=== PATIENT | male | born 1975 | race African-American/Black ===

== ENCOUNTER 2018-12-14 15:17 | Emergency (ER) | payer MEDICARE ==
[~2018-12-14] VITALS: Ht 182.9 cm; Wt 108.9 kg
[2018-12-14 15:20] VITALS: BP 135/80
[2018-12-14] MEDS ORDERED: HYDR-3164 PO (16:23)
[2018-12-14] MEDS ORDERED: ORPH100T PO (16:23)
--- NOTE | 2018-12-14 16:23 | PHYS DOC ---
Past Medical History Past Medical History: No Pertinent History Past Surgical History: Cholecystectomy Alcohol Use: Occasionally Drug Use: None Adult General Chief Complaint Chief Complaint: BACK PAIN OR INJURY [facility] HPI Patient is a 43 year old male who presents with chronic back pain. Patient states about 3 days ago he began having mid thoracic pain and her shoulder blade area. He rates his pain a 10 out of 10. Patient states this feels like his chronic back pain. Patient states it's an aching gnawing feeling. Patient states he has not taken any medication for this pain today. Review of Systems Review of Systems Constitutional: Denies fever or chills [] Eyes: Denies change in visual acuity, redness, or eye pain [] HENT: Denies nasal congestion or sore throat [] Respiratory: Denies cough or shortness of breath [] Cardiovascular: No additional information not addressed in HPI [] GI: Denies abdominal pain, nausea, vomiting, bloody stools or diarrhea [] : Denies dysuria or hematuria [] Musculoskeletal: thoracic back pain or joint pain [] Integument: Denies rash or skin lesions [] Neurologic: Denies headache, focal weakness or sensory changes [] Endocrine: Denies polyuria or polydipsia [] All other systems were reviewed and found to be within normal limits, except as documented in this note. Allergies Allergies Allergies Coded Allergies Type Severity Reaction Last Updated Verified No Known Drug Allergies 10/15/14 No Physical Exam Physical Exam Constitutional: Well developed, well nourished, no acute distress, non-toxic appearance. [] HENT: Normocephalic, atraumatic, bilateral external ears normal, oropharynx moist, no oral exudates, nose normal. [] Eyes: PERRLA, EOMI, conjunctiva normal, no discharge. [] Neck: Normal range of motion, no tenderness, supple, no stridor. [] Cardiovascular:Heart rate regular rhythm, no murmur [] Lungs & Thorax: Bilateral breath sounds clear to auscultation [] Abdomen: Bowel sounds normal, soft, no tenderness, no masses, no pulsatile masses. [] Skin: Warm, dry, no erythema, no rash. [] Back: mid thoracic tenderness, no CVA tenderness. [] Extremities: No tenderness, no cyanosis, no clubbing, ROM intact, no edema. [] Neurologic: Alert and oriented X 3, normal motor function, normal sensory function, no focal deficits noted. [] Psychologic: Affect normal, judgement normal, mood normal. [] Current Patient Data Vital Signs Vital Signs Date Time Temp Pulse Resp B/P (MAP) Pulse Ox O2 Delivery O2 Flow Rate FiO2 12/14/18 15:20 98.4 83 18 135/80 (98) 97 Room Air 98.4 EKG EKG [] Radiology/Procedures Radiology/Procedures [] Course & Med Decision Making Course & Med Decision Making Patient is a 43 year old male who presents with chronic back pain. Patient states about 3 days ago he began having mid thoracic pain and her shoulder blade area. He rates his pain a 10 out of 10. Patient states this feels like his chronic back pain. Patient states it's an aching gnawing feeling. Patient states he has not taken any medication for this pain today. There is pain with palpation to the area. Patient states the pain hurts worse with movement. Alert and oriented. Skin pink warm and dry. Mucous members are moist. Vital signs are within normal limits. Patient denies dizziness, chest pain, shortness of air, nausea, vomiting, diaphoresis, fever, dysuria. Patient came in by EMS and was ambulatory with a steady gait. Patient states he does not have a primary care provider. Patient is given physician resources for follow-up care for his chronic back pain. Dragon Disclaimer Dragon Disclaimer This electronic medical record was generated, in whole or in part, using a voice recognition dictation system. Departure Departure Impression: Primary Impression: Chronic back pain Disposition: 01 HOME, SELF-CARE Condition: STABLE Referrals: NO PCP (PCP) Patient Instructions: Back Pain, Adult, Chronic Back Pain Additional Instructions: Follow up with a doctor for your chronic back pain. Take medications as prescribed. Scripts Orphenadrine Citrate (ORPHENADRINE CITRATE) 100 Mg Tablet.er 1 TAB PO BID, #8 TAB Prov: SHINE WILKINS [employer] ARCHITECT 12/14/18 Hydrocodone/Apap 5-325 (NORCO 5-325 TABLET) 1 Each Tablet 1 TAB PO PRN Q6HRS PRN for PAIN, #6 TAB 0 Refills Prov: SHINE WILKINS [employer]CHIT[employer] 12/14/18 Problem Qualifiers Primary Impression: Chronic back pain Back pain location: thoracic back pain Back pain laterality: midline Qualified Codes: M54.6 - Pain in thoracic spine; G89.29 - Other chronic pain SHINE WILKINS APRN Dec 14, 2018 16:23
== END 2018-12-14 16:30 | disposition home or self-care (01) ==
LOC: ER 15:17
DX: G89.29 Other chronic pain (principal); M54.6 Pain in thoracic spine; M25.519 Pain in unspecified shoulder
CPT/HCPCS: 99283

== ENCOUNTER 2020-06-03 19:53 | Inpatient (IN) | payer MEDICARE, MEDICAID ==
[~2020-06-03] VITALS: Ht 185.4 cm; Wt 104.9 kg
[~2020-06-03 19:53] MED LIST: HYDR-3164 PO; ORPH100T PO
[2020-06-03] MEDS ORDERED: IV NORMAL SALINE 1000ML BAG 1,000 ML IV SCH (20:02)
--- NOTE | 2020-06-03 20:08 | PHYS DOC ---
Past Medical History Past Medical History: No Pertinent History Past Surgical History: Cholecystectomy Smoking Status: Current Every Day Smoker Alcohol Use: Occasionally Drug Use: None General Adult EDM: Chief Complaint: ABDOMINAL PAIN HPI: HPI: Patient is a 44 year old male who presents with patient was picked up in a parking lot by EMS. He complains of generalized abdominal pain since 9:00 this morning. He states he has not taken any medications. He rates his pain a 10 out of 10 and states it is a stabbing pain. Patient is guarding his abdomen. States he has had some diarrhea today. Patient denies nausea, vomiting, fever, cough, dizziness, headache, numbness or tingling, vision changes. EMS also states the patient has bedbugs. Patient with history of a cholecystectomy and smoking. Review of Systems: Review of Systems: Constitutional: Denies fever or chills. [] Eyes: Denies change in visual acuity. [] HENT: Denies nasal congestion or sore throat. [] Respiratory: Denies cough or shortness of breath. [] Cardiovascular: Denies chest pain or edema. [] GI: Generalized abdominal pain, denies nausea, vomiting, bloody stools. + diarrhea. [] : Denies dysuria. [] Musculoskeletal: Denies back pain or joint pain. [] Integument: Denies rash. [] Neurologic: Denies headache, focal weakness or sensory changes. [] Endocrine: Denies polyuria or polydipsia. [] Lymphatic: Denies swollen glands. [] Psychiatric: Denies depression or anxiety. [] Heart Score: Risk Factors: Risk Factors: DM, Current or recent (<one month) smoker, HTN, HLP, family history of CAD, obesity. Risk Scores: Score 0 - 3: 2.5% MACE over next 6 weeks - Discharge Home Score 4 - 6: 20.3% MACE over next 6 weeks - Admit for Clinical Observation Score 7 - 10: 72.7% MACE over next 6 weeks - Early Invasive Strategies Allergies: Allergies: Allergies Coded Allergies Type Severity Reaction Last Updated Verified No Known Drug Allergies 10/15/14 No Physical Exam: PE: Constitutional: Well developed, well nourished, no acute distress, non-toxic appearance. [] HENT: Normocephalic, atraumatic, bilateral external ears normal, oropharynx moist, no oral exudates, nose normal. [] Eyes: PERRLA, EOMI, conjunctiva normal, no discharge. [] Neck: Normal range of motion, no tenderness, supple, no stridor. [] Cardiovascular:Heart rate regular rhythm, no murmur [] Lungs & Thorax: Bilateral breath sounds clear to auscultation [] Abdomen: Bowel sounds normal, tight and distended, generalized tenderness, no m asses, no pulsatile masses. [] Skin: Warm, dry, no erythema, no rash. Small wounds all over body from picking. [] Back: No tenderness, no CVA tenderness. [] Extremities: No tenderness, no cyanosis, no clubbing, ROM intact, no edema. [] Neurologic: Alert and oriented X 3, normal motor function, normal sensory function, no focal deficits noted. [] Psychologic: Affect normal, judgement normal, mood normal. [] EKG: EKG: [] Radiology/Procedures: Radiology/Procedures: [] Impression: [facility] [address] [place] [address] IMAGING REPORT Signed PATIENT: REINALDO OLMOS DACCOUNT: [id number] : 1975 LOCATION: ER AGE: 44 SEX: M EXAM STATUS: REG ER ORD. PHYSICIAN: SHINE WILKINS APRN REASON: abd pain PROCEDURE: CT ABD PELV W/ IV CONTRST ONLY Exam: CT of abdomen and pelvis with contrast INDICATION: Abdominal pain TECHNIQUE: Sequential axial images through the abdomen and pelvis obtained following the administration of 75 mL of Isovue-370 IV contrast. Sagittal and coronal reformatted images were reconstructed from the axial data and reviewed. Comparisons: None FINDINGS: Heart size is normal. No pericardial effusion. Strandy opacities at the dependent portion lungs likely representing atelectasis. Liver, spleen, pancreas, and adrenals are unremarkable. Gallbladder is absent. Kidneys demonstrate symmetric enhancement. No perinephric inflammation or hydronephrosis. No renal or ureteral calculi are identified. Bladder is decompressed not well evaluated. Prostate is not enlarged. The small bowel is diffusely mildly dilated. Colon is nondilated with fluid seen in the cecum and decompressed distally. No free abdominal air or fluid. Abdominal aorta has a normal course and caliber. Abdominal vasculature is patent. No enlarged abdominal lymph nodes are identified. No suspicious osseous lesions or acute fractures. IMPRESSION: Small bowel is mildly dilated diffusely. The more distal small bowel has a more normal caliber. Distinct transition point is not identified. Findings likely relate to either a developing more partial small bowel obstruction. Continued radiographic follow-up is recommended. Exposure: One or more of the following in the visualized dose reduction techniques were utilized for this examination: 1. Automated exposure control 2. Adjustment of the MA and/or KV according to patient size 3. Use of iterative of reconstructive technique Electronically signed by: Roz Amaya MD (06/03/2020 9:16 PM) [id number] DICTATED and SIGNED BY: ROZ AMAYA MD DATE: 06/03/202115 Course & Med Decision Making: Course & Med Decision Making Pertinent Labs and Imaging studies reviewed. (See chart for details) Alert and oriented x4. Speaks in full complete sentences. Patient is guarding his abdomen. Abdomen is look distended and slightly tight. Ambulatory with a slow, steady gait. Patient is positive for PCP and cocaine and marijuana. Blood work is unremarkable. CT findings are as below: IMPRESSION: Small bowel is mildly dilated diffusely. The more distal small bowel has a more normal caliber. Distinct transition point is not identified. Findings likely relate to either a developing more partial small bowel obstruction. Continued radiographic follow-up is recommended. [] Patient admitted to hospitalist. I will consult GI and surgery. Shlomo Disclaimer: Shlomo Disclaimer: This electronic medical record was generated, in whole or in part, using a voice recognition dictation system. Departure Departure Impression: Primary Impression: Small bowel obstruction Disposition: ADMITTED INPATIENT Admitting Physician: HIMMukesh Condition: STABLE Referrals: BIBIANA GALEANO MD (PCP) Justicifation of Admission Dx: Justifications for Admission: Justification of Admission Dx: Yes Comments: Partial Small Bowel Obstruction SHINE WILKINS SIGNAL WORKER Jun 03, 2020 20:08
[2020-06-03 20:14] LABS: BASO % 0 % (0-3); EOS % 0 % (0-3); HEMATOCRIT 45.1 % (39.0-53.0); HEMOGLOBIN 15.3 g/dL (13.0-17.5); LYMPH # 0.9 x10^3/uL (1.0-4.8); LYMPH % 13 % (24-48); MEAN CORPUSCULAR HEMOGLOBIN 31 pg (25-35); MEAN CORPUSCULAR HGB CONC 34 g/dL (31-37); MEAN CORPUSCULAR VOLUME 92 fL (79-100); MONO # 0.6 x10^3/uL (0.0-1.1); MONO % 8 % (0-9); NEUT # 5.6 x10^3/uL (1.8-7.7); NEUT % 79 % (31-73); PLATELET COUNT 253 x10^3/uL (140-400); RED BLOOD COUNT 4.93 x10^6/uL (4.30-5.70); RED CELL DISTRIBUTION WIDTH 13.1 % (11.5-14.5); WHITE BLOOD COUNT 7.1 x10^3/uL (4.0-11.0)
[2020-06-03] MEDS ORDERED: fentaNYL PF VIAL 100 MCG/2 ML VIAL IVP ONE (20:15)
[2020-06-03 20:20] LABS: PROTHROMBIN TIME PATIENT 12.9 SEC (11.7-14.0)
[2020-06-03 20:28] LABS: CALCIUM 9.3 mg/dL (8.5-10.1); CREATININE 1.1 mg/dL (0.7-1.3); GFR 88.8; POTASSIUM 3.6 mmol/L (3.5-5.1)
[2020-06-03 20:30] LABS: COLOR,URINE RED
[2020-06-03 20:32] LABS: ALBUMIN 4.1 g/dL (3.4-5.0); TOTAL BILIRUBIN 1.1 mg/dL (0.2-1.0); TOTAL PROTEIN 8.3 g/dL (6.4-8.2)
[2020-06-03 20:37] LABS: AMPHETAMINE/METHAMPHETAMINE NEG (NEG); BARBITURATES NEG (NEG); BENZODIAZEPINES NEG (NEG); CANNABINOIDS POS (NEG); COCAINE POS (NEG); METHADONE NEG (NEG); OPIATES NEG (NEG); PHENCYCLIDINE POS (NEG)
[2020-06-03 20:41] LABS: RBC,URINE TNTC /HPF (0-2)
[2020-06-03 20:42] LABS: BACTERIA,URINE 0 /HPF (0-FEW); SQUAMOUS EPITHELIAL CELL,UR FEW /LPF
[2020-06-03 20:45] LABS: CLARITY,URINE CLOUDY; WBC,URINE OCC /HPF (0-4)
[2020-06-03] MEDS ORDERED: IOHEXOL 300 MG/ML 100ML VIAL. IV ONE (21:00)
[2020-06-03] MEDS ORDERED: CONTRAST GIVEN. MC PRN (21:00)
--- NOTE | 2020-06-03 21:18 | RAD ---
Exam: CT of abdomen and pelvis with contrast INDICATION: Abdominal pain TECHNIQUE: Sequential axial images through the abdomen and pelvis obtained following the administration of 75 mL of Isovue-370 IV contrast. Sagittal and coronal reformatted images were reconstructed from the axial data and reviewed. Comparisons: None FINDINGS: Heart size is normal. No pericardial effusion. Strandy opacities at the dependent portion lungs likely representing atelectasis. Liver, spleen, pancreas, and adrenals are unremarkable. Gallbladder is absent. Kidneys demonstrate symmetric enhancement. No perinephric inflammation or hydronephrosis. No renal or ureteral calculi are identified. Bladder is decompressed not well evaluated. Prostate is not enlarged. The small bowel is diffusely mildly dilated. Colon is nondilated with fluid seen in the cecum and decompressed distally. No free abdominal air or fluid. Abdominal aorta has a normal course and caliber. Abdominal vasculature is patent. No enlarged abdominal lymph nodes are identified. No suspicious osseous lesions or acute fractures. IMPRESSION: Small bowel is mildly dilated diffusely. The more distal small bowel has a more normal caliber. Distinct transition point is not identified. Findings likely relate to either a developing more partial small bowel obstruction. Continued radiographic follow-up is recommended. Exposure: One or more of the following in the visualized dose reduction techniques were utilized for this examination: 1. Automated exposure control 2. Adjustment of the MA and/or KV according to patient size 3. Use of iterative of reconstructive technique Electronically signed by: Roz Lynch MD (06/03/2020 9:16 PM) [id number]
[2020-06-03] MEDS ORDERED: ONDANSETRON PF 4 MG/2 ML VIAL. IV PRN (21:45)
--- NOTE | 2020-06-03 22:50 | NUR ---
Pt. arrived to unit from ED by wheelchair at 2250. Pt. is alert and oriented, on room air and slightly drowsy. Pt. complains of pain 07/09. Admission questions and assessment done at this time. Call light within reach and bed in lowest position. Will continue to monitor.
[2020-06-04] VITALS: BP 120/54
[2020-06-04] MEDS: IV NORMAL SALINE 1000ML BAG 1,000 ML IV SCH ×3 (00:05→17:23)
[2020-06-04] MEDS: MORPHINE SULFATE 2 MG/ML VIAL. IV PRN ×2 (00:23→10:12)
--- NOTE | 2020-06-04 05:22 | NUR ---
pt. states he smokes up to a pack a day sometimes. Addendum: 06/04/20 at 0528 by DIAZ LUNDY RN Amended: Links added.
[2020-06-04 07:00] VITALS: BP 113/62
--- NOTE | 2020-06-04 09:57 | NUR ---
SW following. Discussed with RN, pt from home, room air, NPO. Pt tox screen positive for PCP, cocaine, marijuana - PAT consulted. RN reported pt's sister helps take care of him - possibility of bed bugs. STEPHANY will continue to follow for discharge planning. Addendum: 06/04/20 at 1245 by LORNE SULLIVAN SW Praveen SHAH) met with pt, pt denying SI, HI, MH hx, only uses drugs "once in a blue sifuentes." Pt provided with AA, NA, and RADAC information. STEPHANY will continue to follow.
--- NOTE | 2020-06-04 10:10 | PDOC2 ---
GI CONSULT Date of Service: DATE: 06/04/20 TIME: 10:10 Reason For Consult: partial SBO HPI: HPI: 44 y/o male brought to ER by EMS, says they picked him up at the store. Poor historian, speech difficult to understand. Abdominal pain and diarrhea started yesterday. Staff notes bedbugs. Tox screen +cocaine +marijuana. Blood on UA. CT report notes possible developing SBO. Had pancreatitis and elevated LFTs in 1996. Had ERCP w/ Dr. Cayr prior to cholecystectomy. ERCP report notes normal ampulla, normal PD, dilated CBD w/o filling defects and normal intrahepatic ducts, patent cystic duct w/ large stones present in gallbladder, and empiric papillotomy. Markedly suppressed breathing noted during procedure. PMH: PMH: cholecystectomy chart also mentions back pain and constipation FH: Family History: No pertinent hx Social History: Drugs: Cocaine, Marijuana ROS: Difficult to obtain, see HPI. Vitals: Vitals: Vital Signs Date Time Temp Pulse Resp B/P (MAP) Pulse Ox O2 Delivery O2 Flow Rate FiO2 06/04/20 07:00 98.2 86 18 113/62 (79) 93 Room Air 98.2 Labs: Labs: Laboratory Tests Test 06/03/20 20:05 06/03/20 20:21 White Blood Count 7.1 x10^3/uL (4.0-11.0) Red Blood Count 4.93 x10^6/uL (4.30-5.70) Hemoglobin 15.3 g/dL (13.0-17.5) Hematocrit 45.1 % (39.0-53.0) Mean Corpuscular Volume 92 fL (79-100) Mean Corpuscular Hemoglobin 31 pg (25-35) Mean Corpuscular Hemoglobin Concent 34 g/dL (31-37) Red Cell Distribution Width 13.1 % (11.5-14.5) Platelet Count 253 x10^3/uL (140-400) Neutrophils (%) (Auto) 79 % (31-73) Lymphocytes (%) (Auto) 13 % (24-48) Monocytes (%) (Auto) 8 % (0-9) Eosinophils (%) (Auto) 0 % (0-3) Basophils (%) (Auto) 0 % (0-3) Neutrophils # (Auto) 5.6 x10^3/uL (1.8-7.7) Lymphocytes # (Auto) 0.9 x10^3/uL (1.0-4.8) Monocytes # (Auto) 0.6 x10^3/uL (0.0-1.1) Eosinophils # (Auto) 0.0 x10^3/uL (0.0-0.7) Basophils # (Auto) 0.0 x10^3/uL (0.0-0.2) Prothrombin Time 12.9 SEC (11.7-14.0) Prothromb Time International Ratio 1.0 (0.8-1.1) Sodium Level 140 mmol/L (136-145) Potassium Level 3.6 mmol/L (3.5-5.1) Chloride Level 102 mmol/L (98-107) Carbon Dioxide Level 32 mmol/L (21-32) Anion Gap 6 (6-14) Blood Urea Nitrogen 11 mg/dL (8-26) Creatinine 1.1 mg/dL (0.7-1.3) Estimated GFR (Cockcroft-Gault) 88.8 BUN/Creatinine Ratio 10 (6-20) Glucose Level 115 mg/dL (70-99) Calcium Level 9.3 mg/dL (8.5-10.1) Total Bilirubin 1.1 mg/dL (0.2-1.0) Aspartate Amino Transf (AST/SGOT) 29 U/L (15-37) Alanine Aminotransferase (ALT/SGPT) 44 U/L (16-63) Alkaline Phosphatase 90 U/L (46-116) Total Protein 8.3 g/dL (6.4-8.2) Albumin 4.1 g/dL (3.4-5.0) Albumin/Globulin Ratio 1.0 (1.0-1.7) Lipase 106 U/L (73-393) Urine Collection Type Unknown Urine Color Red Urine Clarity Cloudy Urine pH (<5.0-8.0) Urine Specific Maribel (1.000-1.030) Urine Protein mg/dL (NEG-TRACE) Urine Glucose (UA) mg/dL (NEG) Urine Ketones (Stick) mg/dL (NEG) Urine Blood (NEG) Urine Nitrite (NEG) Urine Bilirubin (NEG) Urine Urobilinogen Dipstick mg/dL (0.2 mg/dL) Urine Leukocyte Esterase (NEG) Urine RBC Tntc /HPF (0-2) Urine WBC Occ /HPF (0-4) Urine Squamous Epithelial Cells Few /LPF Urine Bacteria 0 /HPF (0-FEW) Urine Mucus Mod /LPF Urine Opiates Screen Neg (NEG) Urine Methadone Screen Neg (NEG) Urine Barbiturates Neg (NEG) Urine Phencyclidine Screen Pos (NEG) Urine Amphetamine/Methamphetamine Neg (NEG) Urine Benzodiazepines Screen Neg (NEG) Urine Cocaine Screen Pos (NEG) Urine Cannabinoids Screen Pos (NEG) Urine Ethyl Alcohol Neg (NEG) Allergies: Coded Allergies: No Known Drug Allergies (Unverified , 10/15/14) Medications: Current Medications Medications (Trade) Dose Ordered Sig/Lia Route PRN Reason Start Time Stop Time Status Last Admin Dose Admin Sodium Chloride 1,000 ml @ 1,000 mls/hr Q1H IV 06/03/20 20:02 06/03/20 21:01 DC 06/03/20 20:14 Fentanyl Citrate (Fentanyl 2ml Vial) 50 mcg 1X ONCE IVP 06/03/20 20:15 06/03/20 20:16 DC 06/03/20 20:13 Iohexol (Omnipaque 300 Mg/ml) 75 ml 1X ONCE IV 06/03/20 21:00 06/03/20 21:01 DC 06/03/20 21:02 Sodium Chloride 1,000 ml @ 100 mls/hr Q10H IV 06/03/20 21:45 06/04/20 21:44 06/04/20 08:12 Morphine Sulfate (Morphine Sulfate) 2 mg PRN Q2HR PRN IV PAIN 06/04/20 00:15 06/04/20 00:23 Imaging: Imaging: CT A/P IMPRESSION: Small bowel is mildly dilated diffusely. The more distal small bowel has moo normal caliber. Distinct transition point is not identified. Findings likely relate to either a developing more partial small bowel obstruction.Continued radiographic follow-up is recommended. PE: GEN: NAD HEENT: Atraumatic, PERRL LUNGS: CTAB HEART: RRR ABD: epigastric discomfort, few very quiet BS RLQ EXTREMITY: No edema SKIN: No rashes, no jaundice NEURO/PSYCH: A & O 3, speech difficult to understand A/P: A/P: Abd pain, diarrhea Abnormal CT Substance abuse, bedbugs S/p cholecystectomy and ERCP (1996) -- Keep NPO for now, check KUB and stool studies, consider surgery opinion if indicated. EDER LESLIE Jun 04, 2020 10:10
--- NOTE | 2020-06-04 10:14 | PDOC1 ---
History and Physical Date of Admission Date of Admission DATE: 06/04/20 TIME: 10:14 Identification/Chief Complaint Chief Complaint seen in ER WITH ABD PAIN, sbo 44 year old male who presents with patient was picked up in a parking lot by EMS. He complains of generalized abdominal pain since 9:00 this morning. He rates his pain a 10 out of 10 and states it is a stabbing pain. Patient is guarding his abdomen. STILL C/O TENDERNESS, ACUTE ABD SERIES PENDING, GI ANS SURGERY CONSULTED Past Medical History Past Medical History Past Medical History Past Medical History: No Pertinent History Past Surgical History: Cholecystectomy Smoking Status: Current Every Day Smoker Alcohol Use: Occasionally Drug Use: None FHX COPD Psych: Anxiety, Addictions, Depression Rheumatologic: No pertinent hx Family History Family History: Alcohol Abuse, Hypertension Social History Smoke: <1 pack per day ALCOHOL: occassional Drugs: Cocaine, Marijuana Current Problem List Problem List Problems Medical Problems: (1) Small bowel obstruction Status: Acute Current Medications Current Medications Current Medications Sodium Chloride 1,000 ml @ 1,000 mls/hr Q1H IV Last administered on 06/03/20at 20:14; Start 06/03/20 at 20:02; Stop 06/03/20 at 21:01; Status DC Fentanyl Citrate (Fentanyl 2ml Vial) 50 mcg 1X ONCE IVP Last administered on 06/03/20at 20:13; Start 06/03/20 at 20:15; Stop 06/03/20 at 20:16; Status DC Iohexol (Omnipaque 300 Mg/ml) 75 ml 1X ONCE IV Last administered on 06/03/20at 21:02; Start 06/03/20 at 21:00; Stop 06/03/20 at 21:01; Status DC Info (CONTRAST GIVEN -- Rx MONITORING) 1 each PRN DAILY PRN MC SEE COMMENTS; Start 06/03/20 at 21:00; Stop 06/05/20 at 20:59 Ondansetron HCl (Zofran) 4 mg PRN Q8HRS PRN IV NAUSEA/VOMITING; Start 06/03/20 at 21:45; Stop 06/04/20 at 21:44 Sodium Chloride 1,000 ml @ 100 mls/hr Q10H IV Last administered on 06/04/20at 08:12; Start 06/03/20 at 21:45; Stop 06/04/20 at 21:44 Morphine Sulfate (Morphine Sulfate) 2 mg PRN Q2HR PRN IV PAIN Last administered on 06/04/20at 10:12; Start 06/04/20 at 00:15 Active Scripts Active Reported No Known Medications Prior To Admisstion (Info) Each 1 Each MC 1X Allergies Allergies: Coded Allergies: No Known Drug Allergies (Unverified , 10/15/14) ROS Review of System Review of Systems: Review of Systems: Constitutional: Denies fever or chills. [] Eyes: Denies change in visual acuity. [] HENT: Denies nasal congestion or sore throat. [] Respiratory: Denies cough or shortness of breath. [] Cardiovascular: Denies chest pain or edema. [] GI: Generalized abdominal pain, denies nausea, vomiting, bloody stools. + diarrhea. [] : Denies dysuria. [] Musculoskeletal: Denies back pain or joint pain. [] Integument: Denies rash. [] Neurologic: Denies headache, focal weakness or sensory changes. [] Endocrine: Denies polyuria or polydipsia. [] Lymphatic: Denies swollen glands. [] Psychiatric: Denies SI 14 PT ROS OTHERWISE NEG General: YES: Appetite PSYCHOLOGICAL ROS: YES: Anxiety, Depression ALLERGY AND IMMUNOLOGY: No: Hives, Insect Bite Sensitivity, Itchy/Watery Eyes, Nasal Congestion, Post Nasal Drip, Seasonal Allergies, Other Hematological and Lymphatic: No: Bleeding Problems, Blood Clots, Blood Transfusions, Brusing, Night Sweats, Pallor, Swollen Lymph Nodes, Other Respiratory: No: Cough, Hemoptysis, Orthopnea, Pleuritic Pain, Shortness of breath, SOB with excertion, Sputum Changes, Stridor, Tachypnea, Wheezing, Other Cardiovascular: No Chest Pain, No Palpitations, No Orthopnea, No Paroxysmal No c. Dyspnea, No Edema, No Lt Headedness, No Other Gastrointestinal: Yes Abdominal Pain Musculoskeletal: No Gait Disturbance, No Joint Pain, No Joint Stiffness, No Joint Swelling, No Muscle Pain, No Muscular Weakness, No Pain In:, No Swelling In:, No Other Neurological: Yes Weakness Physical Exam Physical Exam Physical Exam: PE: Constitutional: Well developed, well nourished, MILD acute distress, non-toxic appearance. [] HENT: Normocephalic, atraumatic, bilateral external ears normal, oropharynx moist, no oral exudates, nose normal. [] Eyes: PERRLA, EOMI, conjunctiva normal, no discharge. [] Neck: Normal range of motion, no tenderness, supple, no stridor. [] Cardiovascular:Heart rate regular rhythm, no murmur [] Lungs & Thorax: Bilateral breath sounds clear to auscultation [] Abdomen: Bowel sounds normal, tight and distended, generalized tenderness, no masses, no pulsatile masses. [] Skin: Warm, dry, no erythema, no rash. Small wounds all over body from picking. [] Back: No tenderness, no CVA tenderness. [] Extremities: No tenderness, no cyanosis, no clubbing, ROM intact, no edema. [] Neurologic: Alert and oriented X 3, normal motor function, normal sensory function, no focal deficits noted. [] Psychologic: Affect normal, judgment POOR mood normal. [] General: Alert, Oriented X3, Cooperative, mild distress HEENT: Atraumatic, EOMI, Mucous membr. moist/pink Lungs: Clear to auscultation, Normal air movement Heart: RRR, no thrills, no gallops, no murmurs Breasts: Not examined Abdomen: Other (TENDER DIFFUSELY ) Rectal Exam: not examined Extremities: No cyanosis, No edema Neuro: Normal speech, Cranial nerves 3-12 NL Vitals Vitals Vital Signs Date Time Temp Pulse Resp B/P (MAP) Pulse Ox O2 Delivery O2 Flow Rate FiO2 06/04/20 10:12 Room Air 06/04/20 07:00 98.2 86 18 113/62 (79) 93 98.2 Labs Labs Laboratory Tests Test 06/03/20 20:05 06/03/20 20:21 White Blood Count 7.1 x10^3/uL (4.0-11.0) Red Blood Count 4.93 x10^6/uL (4.30-5.70) Hemoglobin 15.3 g/dL (13.0-17.5) Hematocrit 45.1 % (39.0-53.0) Mean Corpuscular Volume 92 fL (79-100) Mean Corpuscular Hemoglobin 31 pg (25-35) Mean Corpuscular Hemoglobin Concent 34 g/dL (31-37) Red Cell Distribution Width 13.1 % (11.5-14.5) Platelet Count 253 x10^3/uL (140-400) Neutrophils (%) (Auto) 79 % (31-73) Lymphocytes (%) (Auto) 13 % (24-48) Monocytes (%) (Auto) 8 % (0-9) Eosinophils (%) (Auto) 0 % (0-3) Basophils (%) (Auto) 0 % (0-3) Neutrophils # (Auto) 5.6 x10^3/uL (1.8-7.7) Lymphocytes # (Auto) 0.9 x10^3/uL (1.0-4.8) Monocytes # (Auto) 0.6 x10^3/uL (0.0-1.1) Eosinophils # (Auto) 0.0 x10^3/uL (0.0-0.7) Basophils # (Auto) 0.0 x10^3/uL (0.0-0.2) Prothrombin Time 12.9 SEC (11.7-14.0) Prothromb Time International Ratio 1.0 (0.8-1.1) Sodium Level 140 mmol/L (136-145) Potassium Level 3.6 mmol/L (3.5-5.1) Chloride Level 102 mmol/L (98-107) Carbon Dioxide Level 32 mmol/L (21-32) Anion Gap 6 (6-14) Blood Urea Nitrogen 11 mg/dL (8-26) Creatinine 1.1 mg/dL (0.7-1.3) Estimated GFR (Cockcroft-Gault) 88.8 BUN/Creatinine Ratio 10 (6-20) Glucose Level 115 mg/dL (70-99) Calcium Level 9.3 mg/dL (8.5-10.1) Total Bilirubin 1.1 mg/dL (0.2-1.0) Aspartate Amino Transf (AST/SGOT) 29 U/L (15-37) Alanine Aminotransferase (ALT/SGPT) 44 U/L (16-63) Alkaline Phosphatase 90 U/L (46-116) Total Protein 8.3 g/dL (6.4-8.2) Albumin 4.1 g/dL (3.4-5.0) Albumin/Globulin Ratio 1.0 (1.0-1.7) Lipase 106 U/L (73-393) Urine Collection Type Unknown Urine Color Red Urine Clarity Cloudy Urine pH (<5.0-8.0) Urine Specific [place] (1.000-1.030) Urine Protein mg/dL (NEG-TRACE) Urine Glucose (UA) mg/dL (NEG) Urine Ketones (Stick) mg/dL (NEG) Urine Blood (NEG) Urine Nitrite (NEG) Urine Bilirubin (NEG) Urine Urobilinogen Dipstick mg/dL (0.2 mg/dL) Urine Leukocyte Esterase (NEG) Urine RBC Tntc /HPF (0-2) Urine WBC Occ /HPF (0-4) Urine Squamous Epithelial Cells Few /LPF Urine Bacteria 0 /HPF (0-FEW) Urine Mucus Mod /LPF Urine Opiates Screen Neg (NEG) Urine Methadone Screen Neg (NEG) Urine Barbiturates Neg (NEG) Urine Phencyclidine Screen Pos (NEG) Urine Amphetamine/Methamphetamine Neg (NEG) Urine Benzodiazepines Screen Neg (NEG) Urine Cocaine Screen Pos (NEG) Urine Cannabinoids Screen Pos (NEG) Urine Ethyl Alcohol Neg (NEG) Laboratory Tests Test 06/03/20 20:05 06/03/20 20:21 White Blood Count 7.1 x10^3/uL (4.0-11.0) Red Blood Count 4.93 x10^6/uL (4.30-5.70) Hemoglobin 15.3 g/dL (13.0-17.5) Hematocrit 45.1 % (39.0-53.0) Mean Corpuscular Volume 92 fL (79-100) Mean Corpuscular Hemoglobin 31 pg (25-35) Mean Corpuscular Hemoglobin Concent 34 g/dL (31-37) Red Cell Distribution Width 13.1 % (11.5-14.5) Platelet Count 253 x10^3/uL (140-400) Neutrophils (%) (Auto) 79 % (31-73) Lymphocytes (%) (Auto) 13 % (24-48) Monocytes (%) (Auto) 8 % (0-9) Eosinophils (%) (Auto) 0 % (0-3) Basophils (%) (Auto) 0 % (0-3) Neutrophils # (Auto) 5.6 x10^3/uL (1.8-7.7) Lymphocytes # (Auto) 0.9 x10^3/uL (1.0-4.8) Monocytes # (Auto) 0.6 x10^3/uL (0.0-1.1) Eosinophils # (Auto) 0.0 x10^3/uL (0.0-0.7) Basophils # (Auto) 0.0 x10^3/uL (0.0-0.2) Prothrombin Time 12.9 SEC (11.7-14.0) Prothromb Time International Ratio 1.0 (0.8-1.1) Sodium Level 140 mmol/L (136-145) Potassium Level 3.6 mmol/L (3.5-5.1) Chloride Level 102 mmol/L (98-107) Carbon Dioxide Level 32 mmol/L (21-32) Anion Gap 6 (6-14) Blood Urea Nitrogen 11 mg/dL (8-26) Creatinine 1.1 mg/dL (0.7-1.3) Estimated GFR (Cockcroft-Gault) 88.8 BUN/Creatinine Ratio 10 (6-20) Glucose Level 115 mg/dL (70-99) Calcium Level 9.3 mg/dL (8.5-10.1) Total Bilirubin 1.1 mg/dL (0.2-1.0) Aspartate Amino Transf (AST/SGOT) 29 U/L (15-37) Alanine Aminotransferase (ALT/SGPT) 44 U/L (16-63) Alkaline Phosphatase 90 U/L (46-116) Total Protein 8.3 g/dL (6.4-8.2) Albumin 4.1 g/dL (3.4-5.0) Albumin/Globulin Ratio 1.0 (1.0-1.7) Lipase 106 U/L (73-393) Urine Collection Type Unknown Urine Color Red Urine Clarity Cloudy Urine pH (<5.0-8.0) Urine Specific [place] (1.000-1.030) Urine Protein mg/dL (NEG-TRACE) Urine Glucose (UA) mg/dL (NEG) Urine Ketones (Stick) mg/dL (NEG) Urine Blood (NEG) Urine Nitrite (NEG) Urine Bilirubin (NEG) Urine Urobilinogen Dipstick mg/dL (0.2 mg/dL) Urine Leukocyte Esterase (NEG) Urine RBC Tntc /HPF (0-2) Urine WBC Occ /HPF (0-4) Urine Squamous Epithelial Cells Few /LPF Urine Bacteria 0 /HPF (0-FEW) Urine Mucus Mod /LPF Urine Opiates Screen Neg (NEG) Urine Methadone Screen Neg (NEG) Urine Barbiturates Neg (NEG) Urine Phencyclidine Screen Pos (NEG) Urine Amphetamine/Methamphetamine Neg (NEG) Urine Benzodiazepines Screen Neg (NEG) Urine Cocaine Screen Pos (NEG) Urine Cannabinoids Screen Pos (NEG) Urine Ethyl Alcohol Neg (NEG) Images Images PATIENT: REINALDO OLMOS DACCOUNT: [id number] : 1975 LOCATION: ER AGE: 44 SEX: M EXAM STATUS: REG ER ORD. PHYSICIAN: SHINE WILKINS APRN REASON: abd pain PROCEDURE: CT ABD PELV W/ IV CONTRST ONLY Exam: CT of abdomen and pelvis with contrast INDICATION: Abdominal pain TECHNIQUE: Sequential axial images through the abdomen and pelvis obtained following the administration of 75 mL of Isovue-370 IV contrast. Sagittal and coronal reformatted images were reconstructed from the axial data and reviewed. Comparisons: None FINDINGS: Heart size is normal. No pericardial effusion. Strandy opacities at the dependent portion lungs likely representing atelectasis. Liver, spleen, pancreas, and adrenals are unremarkable. Gallbladder is absent. Kidneys demonstrate symmetric enhancement. No perinephric inflammation or hydronephrosis. No renal or ureteral calculi are identified. Bladder is decompressed not well evaluated. Prostate is not enlarged. The small bowel is diffusely mildly dilated. Colon is nondilated with fluid seen in the cecum and decompressed distally. No free abdominal air or fluid. Abdominal aorta has a normal course and caliber. Abdominal vasculature is patent. No enlarged abdominal lymph nodes are identified. No suspicious osseous lesions or acute fractures. IMPRESSION: Small bowel is mildly dilated diffusely. The more distal small bowel has a more normal caliber. Distinct transition point is not identified. Findings likely relate to either a developing more partial small bowel obstruction. Continued radiographic follow-up is recommended. Exposure: One or more of the following in the visualized dose reduction techniques were utilized for this examination: 1. Automated exposure control 2. Adjustment of the MA and/or KV according to patient size 3. Use of iterative of reconstructive technique Electronically signed by: Roz Amaya MD (06/03/2020 9:16 PM) [id number] DICTATED and SIGNED BY: ROZ AMAYA MD DATE: 06/03/202115 VTE Prophylaxis Ordered VTE Prophylaxis Devices: Yes VTE Pharmacological Prophylaxi: No Assessment/Plan Assessment/Plan IMPRESSION: Small bowel is mildly dilated diffusely. Findings likely relate to either a developing more partial small bowel obstruction. Continued radiographic follow- up is recommended. severe polysubstance abuse plan admit consult GI Consult gen surgery npo iv fluids scd's acute abd series now 76 MIN PT EXAM, CHART REVIEW, > 50% OF TIME SPENT WITH EXAM, CHART REVIEW, PT CARE COORDINATION Justicifation of Admission Dx: Justifications for Admission: Justification of Admission Dx: Yes DOROTHY JOSE MD Jun 04, 2020 10:14
[2020-06-04 11:00] VITALS: BP 98/59
[2020-06-04] MEDS ORDERED: 0.9 % SODIUM CHLORIDE 10 ML DISP.SYRIN. IV PRN (12:00)
[2020-06-04] MEDS ORDERED: IPRATRPIUM/ALBUTEROL 0.5/2.5MG 3 ML NEBU. NEB SCH (12:00)
[2020-06-04] MEDS ORDERED: ACETAMINOPHEN 650 MG SUPP.RECT. PR PRN (12:00)
[2020-06-04] MEDS ORDERED: SODIUM PHOSPHATES 19/7GM 133 ML ENEMA. PR PRN (12:00)
[2020-06-04] MEDS ORDERED: ONDANSETRON PF 4 MG/2 ML VIAL. IV PRN (12:00)
[2020-06-04] MEDS ORDERED: IPRATRPIUM/ALBUTEROL 0.5/2.5MG 3 ML NEBU. NEB PRN (12:15)
[2020-06-04] MEDS: ENOXAPARIN 40 MG/0.4 ML SYRINGE. SQ SCH (13:05)
[2020-06-04 14:02] LABS: BASO % 0 % (0-3); EOS % 0 % (0-3); HEMATOCRIT 39.4 % (39.0-53.0); HEMOGLOBIN 13.2 g/dL (13.0-17.5); LYMPH # 0.8 x10^3/uL (1.0-4.8); LYMPH % 10 % (24-48); MEAN CORPUSCULAR HEMOGLOBIN 31 pg (25-35); MEAN CORPUSCULAR HGB CONC 33 g/dL (31-37); MEAN CORPUSCULAR VOLUME 93 fL (79-100); MONO # 0.5 x10^3/uL (0.0-1.1); MONO % 6 % (0-9); NEUT # 6.6 x10^3/uL (1.8-7.7); NEUT % 84 % (31-73); PLATELET COUNT 197 x10^3/uL (140-400); RED BLOOD COUNT 4.25 x10^6/uL (4.30-5.70); RED CELL DISTRIBUTION WIDTH 13.2 % (11.5-14.5); WHITE BLOOD COUNT 7.9 x10^3/uL (4.0-11.0)
[2020-06-04 14:16] LABS: ALBUMIN 2.9 g/dL (3.4-5.0); ALBUMIN/GLOBULIN RATIO 0.8 (1.0-1.7); CALCIUM 7.9 mg/dL (8.5-10.1); CREATININE 0.8 mg/dL (0.7-1.3); GFR 128.3; POTASSIUM 3.3 mmol/L (3.5-5.1); TOTAL BILIRUBIN 1.1 mg/dL (0.2-1.0); TOTAL PROTEIN 6.6 g/dL (6.4-8.2)
[2020-06-04 15:00] VITALS: BP 102/60
--- NOTE | 2020-06-04 15:46 | PDOC2 ---
[facility] 06/04/20 1546: CONSULT Date of Consult Date of Consult DATE: 06/04/20 TIME: 15:38 Reason for Consult Reason for Consult: SBO Referring Physician Referring Physician: Dr Sanford Identification/Chief Complaint Chief Complaint abdominal pain Source Source: Chart review, Patient History of Present Illness Reason for Visit: Admitted with abdominal pain and diarrhea x 2 yesterday. Prior to that was having normal stools. Denies any flatus or stool today. No fevers or chills Hx lap donya Past Medical History Psych: Anxiety, Addictions, Depression Rheumatologic: No pertinent hx Past Surgical History Past Surgical History: Cholecystectomy Family History Family History: Alcohol Abuse, Hypertension Social History <1 pack per day ALCOHOL: occassional Drugs: Cocaine, Marijuana Current Problem List Problem List Problems Medical Problems: (1) Small bowel obstruction Status: Acute Current Medications Current Medications Current Medications Sodium Chloride 1,000 ml @ 1,000 mls/hr Q1H IV Last administered on 06/03/20at 20:14; Start 06/03/20 at 20:02; Stop 06/03/20 at 21:01; Status DC Fentanyl Citrate (Fentanyl 2ml Vial) 50 mcg 1X ONCE IVP Last administered on 06/03/20at 20:13; Start 06/03/20 at 20:15; Stop 06/03/20 at 20:16; Status DC Iohexol (Omnipaque 300 Mg/ml) 75 ml 1X ONCE IV Last administered on 06/03/20at 21:02; Start 06/03/20 at 21:00; Stop 06/03/20 at 21:01; Status DC Info (CONTRAST GIVEN -- Rx MONITORING) 1 each PRN DAILY PRN MC SEE COMMENTS; Start 06/03/20 at 21:00; Stop 06/05/20 at 20:59 Ondansetron HCl (Zofran) 4 mg PRN Q8HRS PRN IV NAUSEA/VOMITING; Start 06/03/20 at 21:45; Stop 06/04/20 at 21:44 Sodium Chloride 1,000 ml @ 100 mls/hr Q10H IV Last administered on 06/04/20at 08:12; Start 06/03/20 at 21:45; Stop 06/04/20 at 21:44 Morphine Sulfate (Morphine Sulfate) 2 mg PRN Q2HR PRN IV PAIN Last administered on 06/04/20at 10:12; Start 06/04/20 at 00:15 Famotidine (Pepcid Vial) 20 mg QHS IVP ; Start 06/04/20 at 21:00 Sodium Chloride (Normal Saline Flush) 3 ml QSHIFT PRN IV AFTER MEDS AND BLOOD DRAWS; Start 06/04/20 at 12:00 Ondansetron HCl (Zofran) 4 mg PRN Q4HRS PRN IV NAUSEA/VOMITING; Start 06/04/20 at 12:00 Acetaminophen (Tylenol Supp) 650 mg PRN Q4HRS PRN MO TEMP OVER 100.4F OR MILD PAIN; Start 06/04/20 at 12:00 Sodium Monofluorophosphate (Fleet Adult) 133 ml PRN DAILY PRN MO CONSTIPATION; Start 06/04/20 at 12:00 Albuterol/ Ipratropium (Duoneb) 3 ml Q4H NEB ; Start 06/04/20 at 12:00; Stop 06/04/20 at 12:14; Status DC Enoxaparin Sodium (Lovenox 40mg Syringe) 40 mg Q24H SQ Last administered on 06/04/20at 13:05; Start 06/04/20 at 12:00 Albuterol/ Ipratropium (Duoneb) 3 ml PRN Q4HRS PRN NEB WHEEZING; Start 06/04/20 at 12:15 Active Scripts Active Reported No Known Medications Prior To Admisstion (Info) Each 1 Each MC 1X Allergies Allergies: Coded Allergies: No Known Drug Allergies (Unverified , 10/15/14) ROS General: No: Chills, Other (fevers) PSYCHOLOGICAL ROS: No: Anxiety, Depression Eyes: No Blurry vision, No Double vision HEENT: No: Heacaches, Sore Throat Hematological and Lymphatic: No: Bleeding Problems, Blood Clots Respiratory: No: Cough, Shortness of breath Cardiovascular: No Chest Pain, No Palpitations Gastrointestinal: Yes Other (see hpi) Genitourinary: No Dysuria, No Hematuria Musculoskeletal: No Joint Pain, No Muscle Pain Neurological: No Confusion, No Numbness/Tingling Skin: No Pruritus, No Rash Physical Exam General: Alert, Oriented X3, Cooperative HEENT: Atraumatic, PERRLA Lungs: Clear to auscultation, Normal air movement Heart: Regular rate, Normal S1, Normal S2 Abdomen: Soft, Other (mild distention, nttp) Extremities: No clubbing, No cyanosis Skin: No rashes, No breakdown Neuro: Normal speech, Sensation intact Psych/Mental Status: Mental status NL, Mood NL MUSCULOSKELETAL: No deformity, No swelling Vitals VITALS Vital Signs Date Time Temp Pulse Resp B/P (MAP) Pulse Ox O2 Delivery O2 Flow Rate FiO2 06/04/20 15:00 98.0 92 18 102/60 (74) 92 Room Air 98.0 Labs Labs Laboratory Tests Test 06/03/20 20:05 06/03/20 20:21 06/04/20 13:12 06/04/20 13:42 White Blood Count 7.1 x10^3/uL (4.0-11.0) 7.9 x10^3/uL (4.0-11.0) Red Blood Count 4.93 x10^6/uL (4.30-5.70) 4.25 x10^6/uL (4.30-5.70) Hemoglobin 15.3 g/dL (13.0-17.5) 13.2 g/dL (13.0-17.5) Hematocrit 45.1 % (39.0-53.0) 39.4 % (39.0-53.0) Mean Corpuscular Volume 92 fL (79-100) 93 fL (79-100) Mean Corpuscular Hemoglobin 31 pg (25-35) 31 pg (25-35) Mean Corpuscular Hemoglobin Concent 34 g/dL (31-37) 33 g/dL (31-37) Red Cell Distribution Width 13.1 % (11.5-14.5) 13.2 % (11.5-14.5) Platelet Count 253 x10^3/uL (140-400) 197 x10^3/uL (140-400) Neutrophils (%) (Auto) 79 % (31-73) 84 % (31-73) Lymphocytes (%) (Auto) 13 % (24-48) 10 % (24-48) Monocytes (%) (Auto) 8 % (0-9) 6 % (0-9) Eosinophils (%) (Auto) 0 % (0-3) 0 % (0-3) Basophils (%) (Auto) 0 % (0-3) 0 % (0-3) Neutrophils # (Auto) 5.6 x10^3/uL (1.8-7.7) 6.6 x10^3/uL (1.8-7.7) Lymphocytes # (Auto) 0.9 x10^3/uL (1.0-4.8) 0.8 x10^3/uL (1.0-4.8) Monocytes # (Auto) 0.6 x10^3/uL (0.0-1.1) 0.5 x10^3/uL (0.0-1.1) Eosinophils # (Auto) 0.0 x10^3/uL (0.0-0.7) 0.0 x10^3/uL (0.0-0.7) Basophils # (Auto) 0.0 x10^3/uL (0.0-0.2) 0.0 x10^3/uL (0.0-0.2) Prothrombin Time 12.9 SEC (11.7-14.0) Prothromb Time International Ratio 1.0 (0.8-1.1) Sodium Level 140 mmol/L (136-145) 140 mmol/L (136-145) Potassium Level 3.6 mmol/L (3.5-5.1) 3.3 mmol/L (3.5-5.1) Chloride Level 102 mmol/L (98-107) 106 mmol/L (98-107) Carbon Dioxide Level 32 mmol/L (21-32) 28 mmol/L (21-32) Anion Gap 6 (6-14) 6 (6-14) Blood Urea Nitrogen 11 mg/dL (8-26) 8 mg/dL (8-26) Creatinine 1.1 mg/dL (0.7-1.3) 0.8 mg/dL (0.7-1.3) Estimated GFR (Cockcroft-Gault) 88.8 128.3 BUN/Creatinine Ratio 10 (6-20) 10 (6-20) Glucose Level 115 mg/dL (70-99) 105 mg/dL (70-99) Calcium Level 9.3 mg/dL (8.5-10.1) 7.9 mg/dL (8.5-10.1) Total Bilirubin 1.1 mg/dL (0.2-1.0) 1.1 mg/dL (0.2-1.0) Aspartate Amino Transf (AST/SGOT) 29 U/L (15-37) 20 U/L (15-37) Alanine Aminotransferase (ALT/SGPT) 44 U/L (16-63) 35 U/L (16-63) Alkaline Phosphatase 90 U/L (46-116) 71 U/L (46-116) Total Protein 8.3 g/dL (6.4-8.2) 6.6 g/dL (6.4-8.2) Albumin 4.1 g/dL (3.4-5.0) 2.9 g/dL (3.4-5.0) Albumin/Globulin Ratio 1.0 (1.0-1.7) 0.8 (1.0-1.7) Lipase 106 U/L (73-393) Urine Collection Type Unknown Urine Color Red Urine Clarity Cloudy Urine pH (<5.0-8.0) Urine Specific [place] (1.000-1.030) Urine Protein mg/dL (NEG-TRACE) Urine Glucose (UA) mg/dL (NEG) Urine Ketones (Stick) mg/dL (NEG) Urine Blood (NEG) Urine Nitrite (NEG) Urine Bilirubin (NEG) Urine Urobilinogen Dipstick mg/dL (0.2 mg/dL) Urine Leukocyte Esterase (NEG) Urine RBC Tntc /HPF (0-2) Urine WBC Occ /HPF (0-4) Urine Squamous Epithelial Cells Few /LPF Urine Bacteria 0 /HPF (0-FEW) Urine Mucus Mod /LPF Urine Opiates Screen Neg (NEG) Urine Methadone Screen Neg (NEG) Urine Barbiturates Neg (NEG) Urine Phencyclidine Screen Pos (NEG) Urine Amphetamine/Methamphetamine Neg (NEG) Urine Benzodiazepines Screen Neg (NEG) Urine Cocaine Screen Pos (NEG) Urine Cannabinoids Screen Pos (NEG) Urine Ethyl Alcohol Neg (NEG) Laboratory Tests Test 06/03/20 20:05 06/03/20 20:21 06/04/20 13:12 06/04/20 13:42 White Blood Count 7.1 x10^3/uL (4.0-11.0) 7.9 x10^3/uL (4.0-11.0) Red Blood Count 4.93 x10^6/uL (4.30-5.70) 4.25 x10^6/uL (4.30-5.70) Hemoglobin 15.3 g/dL (13.0-17.5) 13.2 g/dL (13.0-17.5) Hematocrit 45.1 % (39.0-53.0) 39.4 % (39.0-53.0) Mean Corpuscular Volume 92 fL (79-100) 93 fL (79-100) Mean Corpuscular Hemoglobin 31 pg (25-35) 31 pg (25-35) Mean Corpuscular Hemoglobin Concent 34 g/dL (31-37) 33 g/dL (31-37) Red Cell Distribution Width 13.1 % (11.5-14.5) 13.2 % (11.5-14.5) Platelet Count 253 x10^3/uL (140-400) 197 x10^3/uL (140-400) Neutrophils (%) (Auto) 79 % (31-73) 84 % (31-73) Lymphocytes (%) (Auto) 13 % (24-48) 10 % (24-48) Monocytes (%) (Auto) 8 % (0-9) 6 % (0-9) Eosinophils (%) (Auto) 0 % (0-3) 0 % (0-3) Basophils (%) (Auto) 0 % (0-3) 0 % (0-3) Neutrophils # (Auto) 5.6 x10^3/uL (1.8-7.7) 6.6 x10^3/uL (1.8-7.7) Lymphocytes # (Auto) 0.9 x10^3/uL (1.0-4.8) 0.8 x10^3/uL (1.0-4.8) Monocytes # (Auto) 0.6 x10^3/uL (0.0-1.1) 0.5 x10^3/uL (0.0-1.1) Eosinophils # (Auto) 0.0 x10^3/uL (0.0-0.7) 0.0 x10^3/uL (0.0-0.7) Basophils # (Auto) 0.0 x10^3/uL (0.0-0.2) 0.0 x10^3/uL (0.0-0.2) Prothrombin Time 12.9 SEC (11.7-14.0) Prothromb Time International Ratio 1.0 (0.8-1.1) Sodium Level 140 mmol/L (136-145) 140 mmol/L (136-145) Potassium Level 3.6 mmol/L (3.5-5.1) 3.3 mmol/L (3.5-5.1) Chloride Level 102 mmol/L (98-107) 106 mmol/L (98-107) Carbon Dioxide Level 32 mmol/L (21-32) 28 mmol/L (21-32) Anion Gap 6 (6-14) 6 (6-14) Blood Urea Nitrogen 11 mg/dL (8-26) 8 mg/dL (8-26) Creatinine 1.1 mg/dL (0.7-1.3) 0.8 mg/dL (0.7-1.3) Estimated GFR (Cockcroft-Gault) 88.8 128.3 BUN/Creatinine Ratio 10 (6-20) 10 (6-20) Glucose Level 115 mg/dL (70-99) 105 mg/dL (70-99) Calcium Level 9.3 mg/dL (8.5-10.1) 7.9 mg/dL (8.5-10.1) Total Bilirubin 1.1 mg/dL (0.2-1.0) 1.1 mg/dL (0.2-1.0) Aspartate Amino Transf (AST/SGOT) 29 U/L (15-37) 20 U/L (15-37) Alanine Aminotransferase (ALT/SGPT) 44 U/L (16-63) 35 U/L (16-63) Alkaline Phosphatase 90 U/L (46-116) 71 U/L (46-116) Total Protein 8.3 g/dL (6.4-8.2) 6.6 g/dL (6.4-8.2) Albumin 4.1 g/dL (3.4-5.0) 2.9 g/dL (3.4-5.0) Albumin/Globulin Ratio 1.0 (1.0-1.7) 0.8 (1.0-1.7) Lipase 106 U/L (73-393) Urine Collection Type Unknown Urine Color Red Urine Clarity Cloudy Urine pH (<5.0-8.0) Urine Specific [place] (1.000-1.030) Urine Protein mg/dL (NEG-TRACE) Urine Glucose (UA) mg/dL (NEG) Urine Ketones (Stick) mg/dL (NEG) Urine Blood (NEG) Urine Nitrite (NEG) Urine Bilirubin (NEG) Urine Urobilinogen Dipstick mg/dL (0.2 mg/dL) Urine Leukocyte Esterase (NEG) Urine RBC Tntc /HPF (0-2) Urine WBC Occ /HPF (0-4) Urine Squamous Epithelial Cells Few /LPF Urine Bacteria 0 /HPF (0-FEW) Urine Mucus Mod /LPF Urine Opiates Screen Neg (NEG) Urine Methadone Screen Neg (NEG) Urine Barbiturates Neg (NEG) Urine Phencyclidine Screen Pos (NEG) Urine Amphetamine/Methamphetamine Neg (NEG) Urine Benzodiazepines Screen Neg (NEG) Urine Cocaine Screen Pos (NEG) Urine Cannabinoids Screen Pos (NEG) Urine Ethyl Alcohol Neg (NEG) Assessment/Plan Assessment/Plan SBO vs ileus xr pending would continue NPO and FU on xr DICKSON ODOM MD 06/05/20 1154: CONSULT Assessment/Plan Assessment/Plan Agree with above KOLE BECKER APRN Jun 04, 2020 15:46 DICKSON ODOM MD Jun 05, 2020 11:54
--- NOTE | 2020-06-04 17:00 | RAD ---
Exam: Acute abdominal series INDICATION: Small bowel obstruction, pain TECHNIQUE: Frontal view of the chest with upright and supine views of the abdomen Comparisons: CT 06/03/2020 FINDINGS: The cardiomediastinal silhouette and pulmonary vessels are within normal limits. Patchy bibasilar airspace disease. No pleural effusion. Numerous air-filled dilated loops of small bowel are noted diffusely throughout the abdomen. No suspicious masses or calcifications. Visualized osseous structures are unremarkable. IMPRESSION: 1. Numerous air-filled dilated loops of small bowel favored to represent obstruction. Continued radiographic follow-up is recommended. 2. Patchy bibasilar airspace disease, may be infectious or inflammatory in etiology Electronically signed by: Roz Lynch MD (06/04/2020 4:57 PM) [id number]
[2020-06-04 19:00] VITALS: BP 135/66
--- NOTE | 2020-06-04 19:00 | NUR ---
Pt.'s family asked RN about patient's phone. RN stated pt. did not come in with a phone. RN called lost and found and left a message to retrieve phone. Awaiting call. This was passed on to day shift nurse 06/05.
[2020-06-04] MEDS: FAMOTIDINE 20 MG/2 ML VIAL IVP SCH (21:30)
[2020-06-04 23:00] VITALS: BP 116/65
[2020-06-05 03:00] VITALS: BP 99/59
[2020-06-05 07:00] VITALS: BP 118/71
--- NOTE | 2020-06-05 07:06 | NUR ---
RN tried contacting patient's mother, Amy but there was no answer.
--- NOTE | 2020-06-05 09:45 | PDOC ---
PROGRESS NOTES Date of Service: DATE: 06/05/20 TIME: 09:44 Chief Complaint Chief Complaint VTE Prophylaxis Ordered VTE Prophylaxis Devices: Yes VTE Pharmacological Prophylaxi: No Assessment/Plan Assessment/Plan IMPRESSION: Small bowel is mildly dilated diffusely. Findings likely relate to either a developing more partial small bowel obstruction. Continued radiographic follow- up is recommended. severe polysubstance abuse plan admit consult GI Consult gen surgery npo iv fluids scd's acute abd series reviewed 36 MIN PT EXAM, CHART REVIEW, > 50% OF TIME SPENT WITH EXAM, CHART REVIEW, PT CARE COORDINATION Vitals Vitals Vital Signs Date Time Temp Pulse Resp B/P (MAP) Pulse Ox O2 Delivery O2 Flow Rate FiO2 06/05/20 07:55 Room Air 06/05/20 07:00 98.3 79 18 118/71 (87) 97 98.3 Physical Exam General: Alert, Oriented X3, Cooperative Heart: Regular rate, Normal S1, Normal S2 Lungs: Clear Abdomen: Soft, Other (mild distention, nttp) Extremities: No clubbing, No cyanosis Skin: No rashes, No breakdown Labs LABS Exam: Acute abdominal series INDICATION: Small bowel obstruction, pain TECHNIQUE: Frontal view of the chest with upright and supine views of the abdomen Comparisons: CT 06/03/2020 FINDINGS: The cardiomediastinal silhouette and pulmonary vessels are within normal limits. Patchy bibasilar airspace disease. No pleural effusion. Numerous air-filled dilated loops of small bowel are noted diffusely throughout the abdomen. No suspicious masses or calcifications. Visualized osseous structures are unremarkable. IMPRESSION: 1. Numerous air-filled dilated loops of small bowel favored to represent obstruction. Continued radiographic follow-up is recommended. 2. Patchy bibasilar airspace disease, may be infectious or inflammatory in etiology Electronically signed by: Gil Amaya MD (06/04/2020 4:57 PM) [id number] DICTATED and SIGNED BY: GLI AMAYA MD DATE: 06/04/20 1657 Laboratory Tests Test 06/04/20 13:12 06/04/20 13:42 White Blood Count 7.9 x10^3/uL (4.0-11.0) Red Blood Count 4.25 x10^6/uL (4.30-5.70) Hemoglobin 13.2 g/dL (13.0-17.5) Hematocrit 39.4 % (39.0-53.0) Mean Corpuscular Volume 93 fL (79-100) Mean Corpuscular Hemoglobin 31 pg (25-35) Mean Corpuscular Hemoglobin Concent 33 g/dL (31-37) Red Cell Distribution Width 13.2 % (11.5-14.5) Platelet Count 197 x10^3/uL (140-400) Neutrophils (%) (Auto) 84 % (31-73) Lymphocytes (%) (Auto) 10 % (24-48) Monocytes (%) (Auto) 6 % (0-9) Eosinophils (%) (Auto) 0 % (0-3) Basophils (%) (Auto) 0 % (0-3) Neutrophils # (Auto) 6.6 x10^3/uL (1.8-7.7) Lymphocytes # (Auto) 0.8 x10^3/uL (1.0-4.8) Monocytes # (Auto) 0.5 x10^3/uL (0.0-1.1) Eosinophils # (Auto) 0.0 x10^3/uL (0.0-0.7) Basophils # (Auto) 0.0 x10^3/uL (0.0-0.2) Sodium Level 140 mmol/L (136-145) Potassium Level 3.3 mmol/L (3.5-5.1) Chloride Level 106 mmol/L (98-107) Carbon Dioxide Level 28 mmol/L (21-32) Anion Gap 6 (6-14) Blood Urea Nitrogen 8 mg/dL (8-26) Creatinine 0.8 mg/dL (0.7-1.3) Estimated GFR (Cockcroft-Gault) 128.3 BUN/Creatinine Ratio 10 (6-20) Glucose Level 105 mg/dL (70-99) Calcium Level 7.9 mg/dL (8.5-10.1) Total Bilirubin 1.1 mg/dL (0.2-1.0) Aspartate Amino Transf (AST/SGOT) 20 U/L (15-37) Alanine Aminotransferase (ALT/SGPT) 35 U/L (16-63) Alkaline Phosphatase 71 U/L (46-116) Total Protein 6.6 g/dL (6.4-8.2) Albumin 2.9 g/dL (3.4-5.0) Albumin/Globulin Ratio 0.8 (1.0-1.7) Assessment and Plan Assessmemt and Plan Problems Medical Problems: (1) Small bowel obstruction Status: Acute Comment Review of Relevant I have reviewed the following items tiffani (where applicable) has been applied. Labs Laboratory Tests Test 06/03/20 20:05 06/03/20 20:21 06/04/20 13:12 06/04/20 13:42 White Blood Count 7.1 x10^3/uL (4.0-11.0) 7.9 x10^3/uL (4.0-11.0) Red Blood Count 4.93 x10^6/uL (4.30-5.70) 4.25 x10^6/uL (4.30-5.70) Hemoglobin 15.3 g/dL (13.0-17.5) 13.2 g/dL (13.0-17.5) Hematocrit 45.1 % (39.0-53.0) 39.4 % (39.0-53.0) Mean Corpuscular Volume 92 fL (79-100) 93 fL (79-100) Mean Corpuscular Hemoglobin 31 pg (25-35) 31 pg (25-35) Mean Corpuscular Hemoglobin Concent 34 g/dL (31-37) 33 g/dL (31-37) Red Cell Distribution Width 13.1 % (11.5-14.5) 13.2 % (11.5-14.5) Platelet Count 253 x10^3/uL (140-400) 197 x10^3/uL (140-400) Neutrophils (%) (Auto) 79 % (31-73) 84 % (31-73) Lymphocytes (%) (Auto) 13 % (24-48) 10 % (24-48) Monocytes (%) (Auto) 8 % (0-9) 6 % (0-9) Eosinophils (%) (Auto) 0 % (0-3) 0 % (0-3) Basophils (%) (Auto) 0 % (0-3) 0 % (0-3) Neutrophils # (Auto) 5.6 x10^3/uL (1.8-7.7) 6.6 x10^3/uL (1.8-7.7) Lymphocytes # (Auto) 0.9 x10^3/uL (1.0-4.8) 0.8 x10^3/uL (1.0-4.8) Monocytes # (Auto) 0.6 x10^3/uL (0.0-1.1) 0.5 x10^3/uL (0.0-1.1) Eosinophils # (Auto) 0.0 x10^3/uL (0.0-0.7) 0.0 x10^3/uL (0.0-0.7) Basophils # (Auto) 0.0 x10^3/uL (0.0-0.2) 0.0 x10^3/uL (0.0-0.2) Prothrombin Time 12.9 SEC (11.7-14.0) Prothromb Time International Ratio 1.0 (0.8-1.1) Sodium Level 140 mmol/L (136-145) 140 mmol/L (136-145) Potassium Level 3.6 mmol/L (3.5-5.1) 3.3 mmol/L (3.5-5.1) Chloride Level 102 mmol/L (98-107) 106 mmol/L (98-107) Carbon Dioxide Level 32 mmol/L (21-32) 28 mmol/L (21-32) Anion Gap 6 (6-14) 6 (6-14) Blood Urea Nitrogen 11 mg/dL (8-26) 8 mg/dL (8-26) Creatinine 1.1 mg/dL (0.7-1.3) 0.8 mg/dL (0.7-1.3) Estimated GFR (Cockcroft-Gault) 88.8 128.3 BUN/Creatinine Ratio 10 (6-20) 10 (6-20) Glucose Level 115 mg/dL (70-99) 105 mg/dL (70-99) Calcium Level 9.3 mg/dL (8.5-10.1) 7.9 mg/dL (8.5-10.1) Total Bilirubin 1.1 mg/dL (0.2-1.0) 1.1 mg/dL (0.2-1.0) Aspartate Amino Transf (AST/SGOT) 29 U/L (15-37) 20 U/L (15-37) Alanine Aminotransferase (ALT/SGPT) 44 U/L (16-63) 35 U/L (16-63) Alkaline Phosphatase 90 U/L (46-116) 71 U/L (46-116) Total Protein 8.3 g/dL (6.4-8.2) 6.6 g/dL (6.4-8.2) Albumin 4.1 g/dL (3.4-5.0) 2.9 g/dL (3.4-5.0) Albumin/Globulin Ratio 1.0 (1.0-1.7) 0.8 (1.0-1.7) Lipase 106 U/L (73-393) Urine Collection Type Unknown Urine Color Red Urine Clarity Cloudy Urine pH (<5.0-8.0) Urine Specific [place] (1.000-1.030) Urine Protein mg/dL (NEG-TRACE) Urine Glucose (UA) mg/dL (NEG) Urine Ketones (Stick) mg/dL (NEG) Urine Blood (NEG) Urine Nitrite (NEG) Urine Bilirubin (NEG) Urine Urobilinogen Dipstick mg/dL (0.2 mg/dL) Urine Leukocyte Esterase (NEG) Urine RBC Tntc /HPF (0-2) Urine WBC Occ /HPF (0-4) Urine Squamous Epithelial Cells Few /LPF Urine Bacteria 0 /HPF (0-FEW) Urine Mucus Mod /LPF Urine Opiates Screen Neg (NEG) Urine Methadone Screen Neg (NEG) Urine Barbiturates Neg (NEG) Urine Phencyclidine Screen Pos (NEG) Urine Amphetamine/Methamphetamine Neg (NEG) Urine Benzodiazepines Screen Neg (NEG) Urine Cocaine Screen Pos (NEG) Urine Cannabinoids Screen Pos (NEG) Urine Ethyl Alcohol Neg (NEG) Laboratory Tests Test 06/04/20 13:12 06/04/20 13:42 White Blood Count 7.9 x10^3/uL (4.0-11.0) Red Blood Count 4.25 x10^6/uL (4.30-5.70) Hemoglobin 13.2 g/dL (13.0-17.5) Hematocrit 39.4 % (39.0-53.0) Mean Corpuscular Volume 93 fL (79-100) Mean Corpuscular Hemoglobin 31 pg (25-35) Mean Corpuscular Hemoglobin Concent 33 g/dL (31-37) Red Cell Distribution Width 13.2 % (11.5-14.5) Platelet Count 197 x10^3/uL (140-400) Neutrophils (%) (Auto) 84 % (31-73) Lymphocytes (%) (Auto) 10 % (24-48) Monocytes (%) (Auto) 6 % (0-9) Eosinophils (%) (Auto) 0 % (0-3) Basophils (%) (Auto) 0 % (0-3) Neutrophils # (Auto) 6.6 x10^3/uL (1.8-7.7) Lymphocytes # (Auto) 0.8 x10^3/uL (1.0-4.8) Monocytes # (Auto) 0.5 x10^3/uL (0.0-1.1) Eosinophils # (Auto) 0.0 x10^3/uL (0.0-0.7) Basophils # (Auto) 0.0 x10^3/uL (0.0-0.2) Sodium Level 140 mmol/L (136-145) Potassium Level 3.3 mmol/L (3.5-5.1) Chloride Level 106 mmol/L (98-107) Carbon Dioxide Level 28 mmol/L (21-32) Anion Gap 6 (6-14) Blood Urea Nitrogen 8 mg/dL (8-26) Creatinine 0.8 mg/dL (0.7-1.3) Estimated GFR (Cockcroft-Gault) 128.3 BUN/Creatinine Ratio 10 (6-20) Glucose Level 105 mg/dL (70-99) Calcium Level 7.9 mg/dL (8.5-10.1) Total Bilirubin 1.1 mg/dL (0.2-1.0) Aspartate Amino Transf (AST/SGOT) 20 U/L (15-37) Alanine Aminotransferase (ALT/SGPT) 35 U/L (16-63) Alkaline Phosphatase 71 U/L (46-116) Total Protein 6.6 g/dL (6.4-8.2) Albumin 2.9 g/dL (3.4-5.0) Albumin/Globulin Ratio 0.8 (1.0-1.7) Medications Current Medications Sodium Chloride 1,000 ml @ 1,000 mls/hr Q1H IV Last administered on 06/03/20at 20:14; Start 06/03/20 at 20:02; Stop 06/03/20 at 21:01; Status DC Fentanyl Citrate (Fentanyl 2ml Vial) 50 mcg 1X ONCE IVP Last administered on 06/03/20at 20:13; Start 06/03/20 at 20:15; Stop 06/03/20 at 20:16; Status DC Iohexol (Omnipaque 300 Mg/ml) 75 ml 1X ONCE IV Last administered on 06/03/20at 21:02; Start 06/03/20 at 21:00; Stop 06/03/20 at 21:01; Status DC Info (CONTRAST GIVEN -- Rx MONITORING) 1 each PRN DAILY PRN MC SEE COMMENTS; Start 06/03/20 at 21:00; Stop 06/05/20 at 20:59 Ondansetron HCl (Zofran) 4 mg PRN Q8HRS PRN IV NAUSEA/VOMITING; Start 06/03/20 at 21:45; Stop 06/04/20 at 21:44; Status DC Sodium Chloride 1,000 ml @ 100 mls/hr Q10H IV Last administered on 06/04/20at 17:23; Start 06/03/20 at 21:45; Stop 06/04/20 at 21:44; Status DC Morphine Sulfate (Morphine Sulfate) 2 mg PRN Q2HR PRN IV PAIN Last administered on 06/04/20at 10:12; Start 06/04/20 at 00:15 Famotidine (Pepcid Vial) 20 mg QHS IVP Last administered on 06/04/20at 21:30; Start 06/04/20 at 21:00 Sodium Chloride (Normal Saline Flush) 3 ml QSHIFT PRN IV AFTER MEDS AND BLOOD DRAWS; Start 06/04/20 at 12:00 Ondansetron HCl (Zofran) 4 mg PRN Q4HRS PRN IV NAUSEA/VOMITING; Start 06/04/20 at 12:00 Acetaminophen (Tylenol Supp) 650 mg PRN Q4HRS PRN NM TEMP OVER 100.4F OR MILD PAIN; Start 06/04/20 at 12:00 Sodium Monofluorophosphate (Fleet Adult) 133 ml PRN DAILY PRN NM CONSTIPATION; Start 06/04/20 at 12:00 Albuterol/ Ipratropium (Duoneb) 3 ml Q4H NEB ; Start 06/04/20 at 12:00; Stop 06/04/20 at 12:14; Status DC Enoxaparin Sodium (Lovenox 40mg Syringe) 40 mg Q24H SQ Last administered on 06/04/20at 13:05; Start 06/04/20 at 12:00 Albuterol/ Ipratropium (Duoneb) 3 ml PRN Q4HRS PRN NEB WHEEZING; Start 06/04/20 at 12:15 Active Scripts Active Reported No Known Medications Prior To Admisstion (Info) Each 1 Each 1X Vitals/I & O Vital Sign - Last 24 Hours 06/04/20 06/04/20 06/04/20 06/04/20 10:12 11:00 11:03 15:00 Temp 98.2 98.0 98.2 98.0 Pulse 101 92 Resp 18 18 B/P (MAP) 98/59 (72) 102/60 (74) Pulse Ox 90 92 O2 Delivery Room Air Room Air Room Air Room Air 06/04/20 06/04/20 06/04/20 06/05/20 19:00 20:00 23:00 03:00 Temp 98.9 98.1 98.5 98.9 98.1 98.5 Pulse 98 79 76 Resp 18 18 18 B/P (MAP) 135/66 (89) 116/65 (82) 99/59 (72) Pulse Ox 94 93 94 O2 Delivery Room Air Room Air Room Air Room Air 06/05/20 06/05/20 07:00 07:55 Temp 98.3 98.3 Pulse 79 Resp 18 B/P (MAP) 118/71 (87) Pulse Ox 97 O2 Delivery Room Air Room Air Intake and Output 06/04/20 06/04/20 06/05/20 15:00 23:00 07:00 Intake Total 1000 ml Balance 1000 ml Justicifation of Admission Dx: Justifications for Admission: Justification of Admission Dx: Yes DOROTHY JOSE MD Jun 05, 2020 09:45
--- NOTE | 2020-06-05 10:15 | PDOC ---
Date of Service: DATE: 06/05/20 TIME: 10:12 Subjective: Subjective: Less pain, has stooled, no n/v. Objective: Objective: D/w nurse - has stooled, no c/o pain. Vital Signs: Vital Signs Date Time Temp Pulse Resp B/P (MAP) Pulse Ox O2 Delivery O2 Flow Rate FiO2 06/05/20 07:55 Room Air 06/05/20 07:00 98.3 79 18 118/71 (87) 97 98.3 Labs: Laboratory Tests Test 06/04/20 13:12 06/04/20 13:42 White Blood Count 7.9 x10^3/uL Red Blood Count 4.25 x10^6/uL Hemoglobin 13.2 g/dL Hematocrit 39.4 % Mean Corpuscular Volume 93 fL Mean Corpuscular Hemoglobin 31 pg Mean Corpuscular Hemoglobin Concent 33 g/dL Red Cell Distribution Width 13.2 % Platelet Count 197 x10^3/uL Neutrophils (%) (Auto) 84 % Lymphocytes (%) (Auto) 10 % Monocytes (%) (Auto) 6 % Eosinophils (%) (Auto) 0 % Basophils (%) (Auto) 0 % Neutrophils # (Auto) 6.6 x10^3/uL Lymphocytes # (Auto) 0.8 x10^3/uL Monocytes # (Auto) 0.5 x10^3/uL Eosinophils # (Auto) 0.0 x10^3/uL Basophils # (Auto) 0.0 x10^3/uL Sodium Level 140 mmol/L Potassium Level 3.3 mmol/L Chloride Level 106 mmol/L Carbon Dioxide Level 28 mmol/L Anion Gap 6 Blood Urea Nitrogen 8 mg/dL Creatinine 0.8 mg/dL Estimated GFR (Cockcroft-Gault) 128.3 BUN/Creatinine Ratio 10 Glucose Level 105 mg/dL Calcium Level 7.9 mg/dL Total Bilirubin 1.1 mg/dL Aspartate Amino Transf (AST/SGOT) 20 U/L Alanine Aminotransferase (ALT/SGPT) 35 U/L Alkaline Phosphatase 71 U/L Total Protein 6.6 g/dL Albumin 2.9 g/dL Albumin/Globulin Ratio 0.8 Imaging: [facility] 06/04 IMPRESSION: 1. Numerous air-filled dilated loops of small bowel favored to represent obstruction. Continued radiographic follow-up is recommended. 2. Patchy bibasilar airspace disease, may be infectious or inflammatory in etiology PE: GEN: NAD LUNGS: CTAB HEART: RRR ABD: less discomfort, BS present NEURO/PSYCH: A & O 3 A/P: SBO/ileus Substance abuse, bedbugs R/o COVID-19 -- ?obstruction on x-ray yesterday but is stooling and has less pain. ?try diet - defer to surgery F/u stool studies. Justicifation of Admission Dx: Justifications for Admission: Justification of Admission Dx: Yes EDER LESLIE Jun 05, 2020 10:15
[2020-06-05] MEDS: ENOXAPARIN 40 MG/0.4 ML SYRINGE. SQ SCH (10:43)
[2020-06-05 11:00] VITALS: BP 120/72
--- NOTE | 2020-06-05 12:48 | PDOC ---
SURGICAL PROGRESS NOTE DATE: 06/05/20 TIME: 12:46 Subjective loose stool today less abdominal pain Vital Signs Vital Signs Date Time Temp Pulse Resp B/P (MAP) Pulse Ox O2 Delivery O2 Flow Rate FiO2 06/05/20 11:00 98.0 82 18 120/72 (88) 97 Room Air 98.0 I&O Intake and Output 06/05/20 07:00 Intake Total 1000 ml Balance 1000 ml IV Total 1000 ml # Voids 5 General: Alert, Oriented X3, Cooperative Abdomen: Soft, Other (ND) Labs Laboratory Tests Test 06/03/20 20:05 06/03/20 20:21 06/04/20 13:12 06/04/20 13:42 White Blood Count 7.1 x10^3/uL (4.0-11.0) 7.9 x10^3/uL (4.0-11.0) Red Blood Count 4.93 x10^6/uL (4.30-5.70) 4.25 x10^6/uL (4.30-5.70) Hemoglobin 15.3 g/dL (13.0-17.5) 13.2 g/dL (13.0-17.5) Hematocrit 45.1 % (39.0-53.0) 39.4 % (39.0-53.0) Mean Corpuscular Volume 92 fL (79-100) 93 fL (79-100) Mean Corpuscular Hemoglobin 31 pg (25-35) 31 pg (25-35) Mean Corpuscular Hemoglobin Concent 34 g/dL (31-37) 33 g/dL (31-37) Red Cell Distribution Width 13.1 % (11.5-14.5) 13.2 % (11.5-14.5) Platelet Count 253 x10^3/uL (140-400) 197 x10^3/uL (140-400) Neutrophils (%) (Auto) 79 % (31-73) 84 % (31-73) Lymphocytes (%) (Auto) 13 % (24-48) 10 % (24-48) Monocytes (%) (Auto) 8 % (0-9) 6 % (0-9) Eosinophils (%) (Auto) 0 % (0-3) 0 % (0-3) Basophils (%) (Auto) 0 % (0-3) 0 % (0-3) Neutrophils # (Auto) 5.6 x10^3/uL (1.8-7.7) 6.6 x10^3/uL (1.8-7.7) Lymphocytes # (Auto) 0.9 x10^3/uL (1.0-4.8) 0.8 x10^3/uL (1.0-4.8) Monocytes # (Auto) 0.6 x10^3/uL (0.0-1.1) 0.5 x10^3/uL (0.0-1.1) Eosinophils # (Auto) 0.0 x10^3/uL (0.0-0.7) 0.0 x10^3/uL (0.0-0.7) Basophils # (Auto) 0.0 x10^3/uL (0.0-0.2) 0.0 x10^3/uL (0.0-0.2) Prothrombin Time 12.9 SEC (11.7-14.0) Prothromb Time International Ratio 1.0 (0.8-1.1) Sodium Level 140 mmol/L (136-145) 140 mmol/L (136-145) Potassium Level 3.6 mmol/L (3.5-5.1) 3.3 mmol/L (3.5-5.1) Chloride Level 102 mmol/L (98-107) 106 mmol/L (98-107) Carbon Dioxide Level 32 mmol/L (21-32) 28 mmol/L (21-32) Anion Gap 6 (6-14) 6 (6-14) Blood Urea Nitrogen 11 mg/dL (8-26) 8 mg/dL (8-26) Creatinine 1.1 mg/dL (0.7-1.3) 0.8 mg/dL (0.7-1.3) Estimated GFR (Cockcroft-Gault) 88.8 128.3 BUN/Creatinine Ratio 10 (6-20) 10 (6-20) Glucose Level 115 mg/dL (70-99) 105 mg/dL (70-99) Calcium Level 9.3 mg/dL (8.5-10.1) 7.9 mg/dL (8.5-10.1) Total Bilirubin 1.1 mg/dL (0.2-1.0) 1.1 mg/dL (0.2-1.0) Aspartate Amino Transf (AST/SGOT) 29 U/L (15-37) 20 U/L (15-37) Alanine Aminotransferase (ALT/SGPT) 44 U/L (16-63) 35 U/L (16-63) Alkaline Phosphatase 90 U/L (46-116) 71 U/L (46-116) Total Protein 8.3 g/dL (6.4-8.2) 6.6 g/dL (6.4-8.2) Albumin 4.1 g/dL (3.4-5.0) 2.9 g/dL (3.4-5.0) Albumin/Globulin Ratio 1.0 (1.0-1.7) 0.8 (1.0-1.7) Lipase 106 U/L (73-393) Urine Collection Type Unknown Urine Color Red Urine Clarity Cloudy Urine pH (<5.0-8.0) Urine Specific [place] (1.000-1.030) Urine Protein mg/dL (NEG-TRACE) Urine Glucose (UA) mg/dL (NEG) Urine Ketones (Stick) mg/dL (NEG) Urine Blood (NEG) Urine Nitrite (NEG) Urine Bilirubin (NEG) Urine Urobilinogen Dipstick mg/dL (0.2 mg/dL) Urine Leukocyte Esterase (NEG) Urine RBC Tntc /HPF (0-2) Urine WBC Occ /HPF (0-4) Urine Squamous Epithelial Cells Few /LPF Urine Bacteria 0 /HPF (0-FEW) Urine Mucus Mod /LPF Urine Opiates Screen Neg (NEG) Urine Methadone Screen Neg (NEG) Urine Barbiturates Neg (NEG) Urine Phencyclidine Screen Pos (NEG) Urine Amphetamine/Methamphetamine Neg (NEG) Urine Benzodiazepines Screen Neg (NEG) Urine Cocaine Screen Pos (NEG) Urine Cannabinoids Screen Pos (NEG) Urine Ethyl Alcohol Neg (NEG) Test 06/05/20 09:20 SARS-CoV-2 Antigen (Rapid) Negative (NEGATIVE) Laboratory Tests Test 06/04/20 13:12 06/04/20 13:42 06/05/20 09:20 White Blood Count 7.9 x10^3/uL (4.0-11.0) Red Blood Count 4.25 x10^6/uL (4.30-5.70) Hemoglobin 13.2 g/dL (13.0-17.5) Hematocrit 39.4 % (39.0-53.0) Mean Corpuscular Volume 93 fL (79-100) Mean Corpuscular Hemoglobin 31 pg (25-35) Mean Corpuscular Hemoglobin Concent 33 g/dL (31-37) Red Cell Distribution Width 13.2 % (11.5-14.5) Platelet Count 197 x10^3/uL (140-400) Neutrophils (%) (Auto) 84 % (31-73) Lymphocytes (%) (Auto) 10 % (24-48) Monocytes (%) (Auto) 6 % (0-9) Eosinophils (%) (Auto) 0 % (0-3) Basophils (%) (Auto) 0 % (0-3) Neutrophils # (Auto) 6.6 x10^3/uL (1.8-7.7) Lymphocytes # (Auto) 0.8 x10^3/uL (1.0-4.8) Monocytes # (Auto) 0.5 x10^3/uL (0.0-1.1) Eosinophils # (Auto) 0.0 x10^3/uL (0.0-0.7) Basophils # (Auto) 0.0 x10^3/uL (0.0-0.2) Sodium Level 140 mmol/L (136-145) Potassium Level 3.3 mmol/L (3.5-5.1) Chloride Level 106 mmol/L (98-107) Carbon Dioxide Level 28 mmol/L (21-32) Anion Gap 6 (6-14) Blood Urea Nitrogen 8 mg/dL (8-26) Creatinine 0.8 mg/dL (0.7-1.3) Estimated GFR (Cockcroft-Gault) 128.3 BUN/Creatinine Ratio 10 (6-20) Glucose Level 105 mg/dL (70-99) Calcium Level 7.9 mg/dL (8.5-10.1) Total Bilirubin 1.1 mg/dL (0.2-1.0) Aspartate Amino Transf (AST/SGOT) 20 U/L (15-37) Alanine Aminotransferase (ALT/SGPT) 35 U/L (16-63) Alkaline Phosphatase 71 U/L (46-116) Total Protein 6.6 g/dL (6.4-8.2) Albumin 2.9 g/dL (3.4-5.0) Albumin/Globulin Ratio 0.8 (1.0-1.7) SARS-CoV-2 Antigen (Rapid) Negative (NEGATIVE) Problem List Problems Medical Problems: (1) Small bowel obstruction Status: Acute Assessment/Plan sbo vs ileus had a loose stool--will trial clears , repeat xr in AM Justicifation of Admission Dx: Justifications for Admission: Justification of Admission Dx: Yes KOLE BECKER [employer] SPECIALIST Jun 05, 2020 12:48
[2020-06-05] MEDS ORDERED: POTASSIUM CHLORIDE 20 MEQ TABLET.ER. PO ONE (13:00)
[2020-06-05 15:00] VITALS: BP 120/68
[2020-06-05 19:25] VITALS: BP 107/67
[2020-06-05] MEDS: FAMOTIDINE 20 MG/2 ML VIAL IVP SCH (21:07)
[2020-06-05 23:27] VITALS: BP 105/48
[2020-06-06 03:35] VITALS: BP 122/82
[2020-06-06 05:53] LABS: CREATININE 0.8 mg/dL (0.7-1.3); GFR 128.3; POTASSIUM 3.3 mmol/L (3.5-5.1)
[2020-06-06 06:15] LABS: BASO % 0 % (0-3); EOS % 1 % (0-3); HEMATOCRIT 37.4 % (39.0-53.0); HEMOGLOBIN 13.1 g/dL (13.0-17.5); LYMPH # 1.3 x10^3/uL (1.0-4.8); LYMPH % 33 % (24-48); MEAN CORPUSCULAR HEMOGLOBIN 32 pg (25-35); MEAN CORPUSCULAR HGB CONC 35 g/dL (31-37); MEAN CORPUSCULAR VOLUME 92 fL (79-100); MONO # 0.4 x10^3/uL (0.0-1.1); MONO % 11 % (0-9); NEUT # 2.2 x10^3/uL (1.8-7.7); NEUT % 55 % (31-73); PLATELET COUNT 205 x10^3/uL (140-400); RED BLOOD COUNT 4.07 x10^6/uL (4.30-5.70); RED CELL DISTRIBUTION WIDTH 12.9 % (11.5-14.5)
[2020-06-06 07:00] VITALS: BP 99/55
--- NOTE | 2020-06-06 07:47 | RAD ---
Abdominal series dated 06/06/2020. Comparison made 06/04/2020. Clinical data indication: Abdominal pain. Small bowel obstruction. FINDINGS: Single upright view of the chest shows stable heart and mediastinal contours. There is patchy perihilar and bibasilar airspace disease, similar to slightly improved from prior study. No significant pleural effusion. No pneumothorax. Flat and upright views of the abdomen show mildly dilated loops of colon with minimal small bowel dilation, improved from prior study. No air-fluid level or pneumoperitoneum on the upright view. No abnormal calcification. IMPRESSION: 1. Interval improvement in small bowel dilation. 2. Bilateral airspace disease, similar slightly improved from prior exam. Electronically signed by: Jason Montoya MD (06/06/2020 7:44 AM) [id number]
[2020-06-06] MEDS: POTASSIUM CHLORIDE 20 MEQ TABLET.ER. PO SCH (08:20)
--- NOTE | 2020-06-06 10:34 | PDOC ---
PROGRESS NOTES Date of Service: DATE: 06/06/20 TIME: 10:33 Chief Complaint Chief Complaint VTE Prophylaxis Ordered VTE Prophylaxis Devices: Yes VTE Pharmacological Prophylaxi: No Assessment/Plan Assessment/Plan IMPRESSION: Small bowel is mildly dilated diffusely. Findings likely relate to either a developing more partial small bowel obstruction. 06/06 Interval improvement in small bowel dilation. on acute abd series severe polysubstance abuse plan admit consult GI Consult gen surgery clears iv fluids scd's acute abd series reviewed 36 MIN PT EXAM, CHART REVIEW, > 50% OF TIME SPENT WITH EXAM, CHART REVIEW, PT CARE COORDINATION Vitals Vitals Vital Signs Date Time Temp Pulse Resp B/P (MAP) Pulse Ox O2 Delivery O2 Flow Rate FiO2 06/06/20 07:40 Room Air 06/06/20 07:00 97.8 73 20 99/55 (70) 97 97.8 Physical Exam General: Alert, Oriented X3, Cooperative Heart: Regular rate, Normal S1, Normal S2 Lungs: Clear Abdomen: Normal bowel sounds, Soft, Other (ND) Extremities: No clubbing, No cyanosis Skin: No rashes, No breakdown Labs LABS Abdominal series dated 06/06/2020. Comparison made 06/04/2020. Clinical data indication: Abdominal pain. Small bowel obstruction. FINDINGS: Single upright view of the chest shows stable heart and mediastinal contours. There is patchy perihilar and bibasilar airspace disease, similar to slightly improved from prior study. No significant pleural effusion. No pneumothorax. Flat and upright views of the abdomen show mildly dilated loops of colon with minimal small bowel dilation, improved from prior study. No air-fluid level or pneumoperitoneum on the upright view. No abnormal calcification. IMPRESSION: 1. Interval improvement in small bowel dilation. 2. Bilateral airspace disease, similar slightly improved from prior exam. Electronically signed by: Rohan Montoya MD (06/06/2020 7:44 AM) [id number] DICTATED and SIGNED BY: ROHAN MONTOYA MD DATE: 06/06/20 0744 Laboratory Tests Test 06/06/20 04:25 White Blood Count 4.0 x10^3/uL (4.0-11.0) Red Blood Count 4.07 x10^6/uL (4.30-5.70) Hemoglobin 13.1 g/dL (13.0-17.5) Hematocrit 37.4 % (39.0-53.0) Mean Corpuscular Volume 92 fL (79-100) Mean Corpuscular Hemoglobin 32 pg (25-35) Mean Corpuscular Hemoglobin Concent 35 g/dL (31-37) Red Cell Distribution Width 12.9 % (11.5-14.5) Platelet Count 205 x10^3/uL (140-400) Neutrophils (%) (Auto) 55 % (31-73) Lymphocytes (%) (Auto) 33 % (24-48) Monocytes (%) (Auto) 11 % (0-9) Eosinophils (%) (Auto) 1 % (0-3) Basophils (%) (Auto) 0 % (0-3) Neutrophils # (Auto) 2.2 x10^3/uL (1.8-7.7) Lymphocytes # (Auto) 1.3 x10^3/uL (1.0-4.8) Monocytes # (Auto) 0.4 x10^3/uL (0.0-1.1) Eosinophils # (Auto) 0.0 x10^3/uL (0.0-0.7) Basophils # (Auto) 0.0 x10^3/uL (0.0-0.2) Sodium Level 139 mmol/L (136-145) Potassium Level 3.3 mmol/L (3.5-5.1) Chloride Level 105 mmol/L (98-107) Carbon Dioxide Level 27 mmol/L (21-32) Anion Gap 7 (6-14) Blood Urea Nitrogen 4 mg/dL (8-26) Creatinine 0.8 mg/dL (0.7-1.3) Estimated GFR (Cockcroft-Gault) 128.3 Glucose Level 78 mg/dL (70-99) Calcium Level 8.0 mg/dL (8.5-10.1) Assessment and Plan Assessmemt and Plan Problems Medical Problems: (1) Small bowel obstruction Status: Acute Comment Review of Relevant I have reviewed the following items tiffani (where applicable) has been applied. Labs Laboratory Tests Test 06/04/20 13:12 06/04/20 13:42 06/05/20 09:20 06/06/20 04:25 White Blood Count 7.9 x10^3/uL (4.0-11.0) 4.0 x10^3/uL (4.0-11.0) Red Blood Count 4.25 x10^6/uL (4.30-5.70) 4.07 x10^6/uL (4.30-5.70) Hemoglobin 13.2 g/dL (13.0-17.5) 13.1 g/dL (13.0-17.5) Hematocrit 39.4 % (39.0-53.0) 37.4 % (39.0-53.0) Mean Corpuscular Volume 93 fL (79-100) 92 fL (79-100) Mean Corpuscular Hemoglobin 31 pg (25-35) 32 pg (25-35) Mean Corpuscular Hemoglobin Concent 33 g/dL (31-37) 35 g/dL (31-37) Red Cell Distribution Width 13.2 % (11.5-14.5) 12.9 % (11.5-14.5) Platelet Count 197 x10^3/uL (140-400) 205 x10^3/uL (140-400) Neutrophils (%) (Auto) 84 % (31-73) 55 % (31-73) Lymphocytes (%) (Auto) 10 % (24-48) 33 % (24-48) Monocytes (%) (Auto) 6 % (0-9) 11 % (0-9) Eosinophils (%) (Auto) 0 % (0-3) 1 % (0-3) Basophils (%) (Auto) 0 % (0-3) 0 % (0-3) Neutrophils # (Auto) 6.6 x10^3/uL (1.8-7.7) 2.2 x10^3/uL (1.8-7.7) Lymphocytes # (Auto) 0.8 x10^3/uL (1.0-4.8) 1.3 x10^3/uL (1.0-4.8) Monocytes # (Auto) 0.5 x10^3/uL (0.0-1.1) 0.4 x10^3/uL (0.0-1.1) Eosinophils # (Auto) 0.0 x10^3/uL (0.0-0.7) 0.0 x10^3/uL (0.0-0.7) Basophils # (Auto) 0.0 x10^3/uL (0.0-0.2) 0.0 x10^3/uL (0.0-0.2) Sodium Level 140 mmol/L (136-145) 139 mmol/L (136-145) Potassium Level 3.3 mmol/L (3.5-5.1) 3.3 mmol/L (3.5-5.1) Chloride Level 106 mmol/L (98-107) 105 mmol/L (98-107) Carbon Dioxide Level 28 mmol/L (21-32) 27 mmol/L (21-32) Anion Gap 6 (6-14) 7 (6-14) Blood Urea Nitrogen 8 mg/dL (8-26) 4 mg/dL (8-26) Creatinine 0.8 mg/dL (0.7-1.3) 0.8 mg/dL (0.7-1.3) Estimated GFR (Cockcroft-Gault) 128.3 128.3 BUN/Creatinine Ratio 10 (6-20) Glucose Level 105 mg/dL (70-99) 78 mg/dL (70-99) Calcium Level 7.9 mg/dL (8.5-10.1) 8.0 mg/dL (8.5-10.1) Total Bilirubin 1.1 mg/dL (0.2-1.0) Aspartate Amino Transf (AST/SGOT) 20 U/L (15-37) Alanine Aminotransferase (ALT/SGPT) 35 U/L (16-63) Alkaline Phosphatase 71 U/L (46-116) Total Protein 6.6 g/dL (6.4-8.2) Albumin 2.9 g/dL (3.4-5.0) Albumin/Globulin Ratio 0.8 (1.0-1.7) SARS-CoV-2 Antigen (Rapid) Negative (NEGATIVE) Laboratory Tests Test 06/06/20 04:25 White Blood Count 4.0 x10^3/uL (4.0-11.0) Red Blood Count 4.07 x10^6/uL (4.30-5.70) Hemoglobin 13.1 g/dL (13.0-17.5) Hematocrit 37.4 % (39.0-53.0) Mean Corpuscular Volume 92 fL (79-100) Mean Corpuscular Hemoglobin 32 pg (25-35) Mean Corpuscular Hemoglobin Concent 35 g/dL (31-37) Red Cell Distribution Width 12.9 % (11.5-14.5) Platelet Count 205 x10^3/uL (140-400) Neutrophils (%) (Auto) 55 % (31-73) Lymphocytes (%) (Auto) 33 % (24-48) Monocytes (%) (Auto) 11 % (0-9) Eosinophils (%) (Auto) 1 % (0-3) Basophils (%) (Auto) 0 % (0-3) Neutrophils # (Auto) 2.2 x10^3/uL (1.8-7.7) Lymphocytes # (Auto) 1.3 x10^3/uL (1.0-4.8) Monocytes # (Auto) 0.4 x10^3/uL (0.0-1.1) Eosinophils # (Auto) 0.0 x10^3/uL (0.0-0.7) Basophils # (Auto) 0.0 x10^3/uL (0.0-0.2) Sodium Level 139 mmol/L (136-145) Potassium Level 3.3 mmol/L (3.5-5.1) Chloride Level 105 mmol/L (98-107) Carbon Dioxide Level 27 mmol/L (21-32) Anion Gap 7 (6-14) Blood Urea Nitrogen 4 mg/dL (8-26) Creatinine 0.8 mg/dL (0.7-1.3) Estimated GFR (Cockcroft-Gault) 128.3 Glucose Level 78 mg/dL (70-99) Calcium Level 8.0 mg/dL (8.5-10.1) Microbiology 06/04/20 Blood Culture - Preliminary, Resulted NO GROWTH AFTER 1 DAY Medications Current Medications Sodium Chloride 1,000 ml @ 1,000 mls/hr Q1H IV Last administered on 06/03/20at 20:14; Start 06/03/20 at 20:02; Stop 06/03/20 at 21:01; Status DC Fentanyl Citrate (Fentanyl 2ml Vial) 50 mcg 1X ONCE IVP Last administered on 06/03/20at 20:13; Start 06/03/20 at 20:15; Stop 06/03/20 at 20:16; Status DC Iohexol (Omnipaque 300 Mg/ml) 75 ml 1X ONCE IV Last administered on 06/03/20at 21:02; Start 06/03/20 at 21:00; Stop 06/03/20 at 21:01; Status DC Info (CONTRAST GIVEN -- Rx MONITORING) 1 each PRN DAILY PRN MC SEE COMMENTS; Start 06/03/20 at 21:00; Stop 06/05/20 at 20:59; Status DC Ondansetron HCl (Zofran) 4 mg PRN Q8HRS PRN IV NAUSEA/VOMITING; Start 06/03/20 at 21:45; Stop 06/04/20 at 21:44; Status DC Sodium Chloride 1,000 ml @ 100 mls/hr Q10H IV Last administered on 06/04/20at 17:23; Start 06/03/20 at 21:45; Stop 06/04/20 at 21:44; Status DC Morphine Sulfate (Morphine Sulfate) 2 mg PRN Q2HR PRN IV PAIN Last administered on 06/04/20at 10:12; Start 06/04/20 at 00:15 Famotidine (Pepcid Vial) 20 mg QHS IVP Last administered on 06/05/20at 21:07; Start 06/04/20 at 21:00 Sodium Chloride (Normal Saline Flush) 3 ml QSHIFT PRN IV AFTER MEDS AND BLOOD DRAWS; Start 06/04/20 at 12:00 Ondansetron HCl (Zofran) 4 mg PRN Q4HRS PRN IV NAUSEA/VOMITING; Start 06/04/20 at 12:00 Acetaminophen (Tylenol Supp) 650 mg PRN Q4HRS PRN [place] TEMP OVER 100.4F OR MILD PAIN; Start 06/04/20 at 12:00 Sodium Monofluorophosphate (Fleet Adult) 133 ml PRN DAILY PRN [place] CONSTIPATION; Start 06/04/20 at 12:00 Albuterol/ Ipratropium (Duoneb) 3 ml Q4H NEB ; Start 06/04/20 at 12:00; Stop 06/04 at 12:14; Status DC Enoxaparin Sodium (Lovenox 40mg Syringe) 40 mg Q24H SQ Last administered on 06/04/20at 13:05; Start 06/04/20 at 12:00 Albuterol/ Ipratropium (Duoneb) 3 ml PRN Q4HRS PRN NEB WHEEZING; Start 06/04/20 at 12:15 Potassium Chloride (Klor-Con) 40 meq 1X ONCE PO Last administered on 06/05/20at 13:12; Start 06/05/20 at 13:00; Stop 06/05/20 at 13:01; Status DC Potassium Chloride (Klor-Con) 20 meq DAILYWBKFT PO Last administered on 06/06/20at 08:20; Start 06/06/20 at 08:00 Active Scripts Active Reported No Known Medications Prior To Admisstion (Info) Each 1 Each 1X Vitals/I & O Vital Sign - Last 24 Hours 06/05/20 06/05/20 06/05/20 06/05/20 11:00 15:00 19:25 19:45 Temp 98.0 98.0 98.6 98.0 98.0 98.6 Pulse 82 60 67 Resp 18 20 17 B/P (MAP) 120/72 (88) 120/68 (85) 107/67 (80) Pulse Ox 97 96 96 O2 Delivery Room Air Room Air Room Air Room Air 06/05/20 06/06/20 06/06/20 06/06/20 23:27 03:35 07:00 07:40 Temp 98.7 98.6 97.8 98.7 98.6 97.8 Pulse 60 66 73 Resp 18 16 20 B/P (MAP) 105/48 (67) 122/82 (95) 99/55 (70) Pulse Ox 99 95 97 O2 Delivery Room Air Room Air Room Air Room Air Intake and Output 06/05/20 06/05/20 06/06/20 15:00 23:00 07:00 Intake Total 300 ml 600 ml Balance 300 ml 600 ml Justicifation of Admission Dx: Justifications for Admission: Justification of Admission Dx: Yes DOROTHY JOSE MD Jun 06, 2020 10:34
[2020-06-06 10:52] VITALS: BP 116/72
[2020-06-06] MEDS: ENOXAPARIN 40 MG/0.4 ML SYRINGE. SQ SCH (11:04)
[2020-06-06 15:41] VITALS: BP 119/74
--- NOTE | 2020-06-06 16:26 | PDOC ---
SURGICAL PROGRESS NOTE DATE: 06/06/20 TIME: 16:25 Subjective mild pain reports loose stools tolerating clears Vital Signs Vital Signs Date Time Temp Pulse Resp B/P (MAP) Pulse Ox O2 Delivery O2 Flow Rate FiO2 06/06/20 15:41 98.2 68 20 119/74 (89) 98 Room Air 98.2 I&O Intake and Output 06/06/20 07:00 Intake Total 900 ml Balance 900 ml Intake Oral 900 ml # Voids 3 # Bowel Movements 1 General: Alert, Oriented X3, Cooperative Abdomen: Soft, No tenderness Labs Laboratory Tests Test 06/05/20 09:20 06/06/20 04:25 SARS-CoV-2 Antigen (Rapid) Negative (NEGATIVE) White Blood Count 4.0 x10^3/uL (4.0-11.0) Red Blood Count 4.07 x10^6/uL (4.30-5.70) Hemoglobin 13.1 g/dL (13.0-17.5) Hematocrit 37.4 % (39.0-53.0) Mean Corpuscular Volume 92 fL (79-100) Mean Corpuscular Hemoglobin 32 pg (25-35) Mean Corpuscular Hemoglobin Concent 35 g/dL (31-37) Red Cell Distribution Width 12.9 % (11.5-14.5) Platelet Count 205 x10^3/uL (140-400) Neutrophils (%) (Auto) 55 % (31-73) Lymphocytes (%) (Auto) 33 % (24-48) Monocytes (%) (Auto) 11 % (0-9) Eosinophils (%) (Auto) 1 % (0-3) Basophils (%) (Auto) 0 % (0-3) Neutrophils # (Auto) 2.2 x10^3/uL (1.8-7.7) Lymphocytes # (Auto) 1.3 x10^3/uL (1.0-4.8) Monocytes # (Auto) 0.4 x10^3/uL (0.0-1.1) Eosinophils # (Auto) 0.0 x10^3/uL (0.0-0.7) Basophils # (Auto) 0.0 x10^3/uL (0.0-0.2) Sodium Level 139 mmol/L (136-145) Potassium Level 3.3 mmol/L (3.5-5.1) Chloride Level 105 mmol/L (98-107) Carbon Dioxide Level 27 mmol/L (21-32) Anion Gap 7 (6-14) Blood Urea Nitrogen 4 mg/dL (8-26) Creatinine 0.8 mg/dL (0.7-1.3) Estimated GFR (Cockcroft-Gault) 128.3 Glucose Level 78 mg/dL (70-99) Calcium Level 8.0 mg/dL (8.5-10.1) Laboratory Tests Test 06/06/20 04:25 White Blood Count 4.0 x10^3/uL (4.0-11.0) Red Blood Count 4.07 x10^6/uL (4.30-5.70) Hemoglobin 13.1 g/dL (13.0-17.5) Hematocrit 37.4 % (39.0-53.0) Mean Corpuscular Volume 92 fL (79-100) Mean Corpuscular Hemoglobin 32 pg (25-35) Mean Corpuscular Hemoglobin Concent 35 g/dL (31-37) Red Cell Distribution Width 12.9 % (11.5-14.5) Platelet Count 205 x10^3/uL (140-400) Neutrophils (%) (Auto) 55 % (31-73) Lymphocytes (%) (Auto) 33 % (24-48) Monocytes (%) (Auto) 11 % (0-9) Eosinophils (%) (Auto) 1 % (0-3) Basophils (%) (Auto) 0 % (0-3) Neutrophils # (Auto) 2.2 x10^3/uL (1.8-7.7) Lymphocytes # (Auto) 1.3 x10^3/uL (1.0-4.8) Monocytes # (Auto) 0.4 x10^3/uL (0.0-1.1) Eosinophils # (Auto) 0.0 x10^3/uL (0.0-0.7) Basophils # (Auto) 0.0 x10^3/uL (0.0-0.2) Sodium Level 139 mmol/L (136-145) Potassium Level 3.3 mmol/L (3.5-5.1) Chloride Level 105 mmol/L (98-107) Carbon Dioxide Level 27 mmol/L (21-32) Anion Gap 7 (6-14) Blood Urea Nitrogen 4 mg/dL (8-26) Creatinine 0.8 mg/dL (0.7-1.3) Estimated GFR (Cockcroft-Gault) 128.3 Glucose Level 78 mg/dL (70-99) Calcium Level 8.0 mg/dL (8.5-10.1) Problem List Problems Medical Problems: (1) Small bowel obstruction Status: Acute Assessment/Plan xrays improved ok to advance diet Justicifation of Admission Dx: Justifications for Admission: Justification of Admission Dx: Yes KOLE BECKER MORPHOLOGIST Jun 06, 2020 16:26
[2020-06-06 19:26] VITALS: BP 111/71
[2020-06-06] MEDS: FAMOTIDINE 20 MG/2 ML VIAL IVP SCH (20:36)
[2020-06-06 23:48] VITALS: BP 122/74
[2020-06-07 03:24] VITALS: BP 112/58
--- NOTE | 2020-06-07 06:52 | NUR ---
RN went through patient's belongings again last evening with no luck finding phone. RN left message with environmental services team line ([phone]) about patient's phone. He is missing a motorola ria E5 that he came in with according to his sister Radha who was able to track the phone through her phone (that is how she found out he was at [facility].) This was passed on to day shift nurse. Will continue to monitor.
[2020-06-07] MEDS: POTASSIUM CHLORIDE 20 MEQ TABLET.ER. PO SCH (07:42)
[2020-06-07 07:59] VITALS: BP 97/59
--- NOTE | 2020-06-07 10:27 | PDOC ---
PROGRESS NOTES Date of Service: DATE: 06/07/20 TIME: 10:27 Chief Complaint Chief Complaint VTE Prophylaxis Ordered VTE Prophylaxis Devices: Yes VTE Pharmacological Prophylaxi: No Assessment/Plan Assessment/Plan IMPRESSION: Small bowel is mildly dilated diffusely. Findings likely relate to either a developing more partial small bowel obstruction. 06/06 Interval improvement in small bowel dilation. on acute abd series severe polysubstance abuse plan admit consult GI Consult gen surgery clears iv fluids scd's acute abd series reviewed 26 MIN PT EXAM, CHART REVIEW, > 50% OF TIME SPENT WITH EXAM, CHART REVIEW, PT CARE COORDINATION Vitals Vitals Vital Signs Date Time Temp Pulse Resp B/P (MAP) Pulse Ox O2 Delivery O2 Flow Rate FiO2 06/07/20 07:59 98.2 59 18 97/59 (72) 96 Room Air 98.2 Physical Exam General: Alert, Oriented X3, Cooperative Heart: Regular rate, Normal S1, Normal S2 Lungs: Clear Abdomen: Soft, No tenderness Extremities: No clubbing, No cyanosis Skin: No rashes, No breakdown Labs LABS Abdominal series dated 06/06/2020. Comparison made 06/04/2020. Clinical data indication: Abdominal pain. Small bowel obstruction. FINDINGS: Single upright view of the chest shows stable heart and mediastinal contours. There is patchy perihilar and bibasilar airspace disease, similar to slightly improved from prior study. No significant pleural effusion. No pneumothorax. Flat and upright views of the abdomen show mildly dilated loops of colon with minimal small bowel dilation, improved from prior study. No air-fluid level or pneumoperitoneum on the upright view. No abnormal calcification. IMPRESSION: 1. Interval improvement in small bowel dilation. 2. Bilateral airspace disease, similar slightly improved from prior exam. Electronically signed by: Rohan Montoya MD (06/06/2020 7:44 AM) [id number] DICTATED and SIGNED BY: ROHAN MONTOYA MD DATE: 06/06/20 0744 Assessment and Plan Assessmemt and Plan Problems Medical Problems: (1) Small bowel obstruction Status: Acute Comment Review of Relevant I have reviewed the following items tiffani (where applicable) has been applied. Labs Laboratory Tests Test 06/06/20 04:25 White Blood Count 4.0 x10^3/uL (4.0-11.0) Red Blood Count 4.07 x10^6/uL (4.30-5.70) Hemoglobin 13.1 g/dL (13.0-17.5) Hematocrit 37.4 % (39.0-53.0) Mean Corpuscular Volume 92 fL (79-100) Mean Corpuscular Hemoglobin 32 pg (25-35) Mean Corpuscular Hemoglobin Concent 35 g/dL (31-37) Red Cell Distribution Width 12.9 % (11.5-14.5) Platelet Count 205 x10^3/uL (140-400) Neutrophils (%) (Auto) 55 % (31-73) Lymphocytes (%) (Auto) 33 % (24-48) Monocytes (%) (Auto) 11 % (0-9) Eosinophils (%) (Auto) 1 % (0-3) Basophils (%) (Auto) 0 % (0-3) Neutrophils # (Auto) 2.2 x10^3/uL (1.8-7.7) Lymphocytes # (Auto) 1.3 x10^3/uL (1.0-4.8) Monocytes # (Auto) 0.4 x10^3/uL (0.0-1.1) Eosinophils # (Auto) 0.0 x10^3/uL (0.0-0.7) Basophils # (Auto) 0.0 x10^3/uL (0.0-0.2) Sodium Level 139 mmol/L (136-145) Potassium Level 3.3 mmol/L (3.5-5.1) Chloride Level 105 mmol/L (98-107) Carbon Dioxide Level 27 mmol/L (21-32) Anion Gap 7 (6-14) Blood Urea Nitrogen 4 mg/dL (8-26) Creatinine 0.8 mg/dL (0.7-1.3) Estimated GFR (Cockcroft-Gault) 128.3 Glucose Level 78 mg/dL (70-99) Calcium Level 8.0 mg/dL (8.5-10.1) Microbiology 06/04/20 Blood Culture - Preliminary, Resulted NO GROWTH AFTER 2 DAYS Medications Current Medications Sodium Chloride 1,000 ml @ 1,000 mls/hr Q1H IV Last administered on 06/03/20at 20:14; Start 06/03/20 at 20:02; Stop 06/03/20 at 21:01; Status DC Fentanyl Citrate (Fentanyl 2ml Vial) 50 mcg 1X ONCE IVP Last administered on 06/03/20at 20:13; Start 06/03/20 at 20:15; Stop 06/03/20 at 20:16; Status DC Iohexol (Omnipaque 300 Mg/ml) 75 ml 1X ONCE IV Last administered on 06/03/20at 21:02; Start 06/03/20 at 21:00; Stop 06/03/20 at 21:01; Status DC Info (CONTRAST GIVEN -- Rx MONITORING) 1 each PRN DAILY PRN MC SEE COMMENTS; Start 06/03/20 at 21:00; Stop 06/05/20 at 20:59; Status DC Ondansetron HCl (Zofran) 4 mg PRN Q8HRS PRN IV NAUSEA/VOMITING; Start 06/03/20 at 21:45; Stop 06/04/20 at 21:44; Status DC Sodium Chloride 1,000 ml @ 100 mls/hr Q10H IV Last administered on 06/04/20at 17:23; Start 06/03/20 at 21:45; Stop 06/04/20 at 21:44; Status DC Morphine Sulfate (Morphine Sulfate) 2 mg PRN Q2HR PRN IV PAIN Last administered on 06/04/20at 10:12; Start 06/04/20 at 00:15 Famotidine (Pepcid Vial) 20 mg QHS IVP Last administered on 06/06/20at 20:36; Start 06/04/20 at 21:00 Sodium Chloride (Normal Saline Flush) 3 ml QSHIFT PRN IV AFTER MEDS AND BLOOD DRAWS; Start 06/04/20 at 12:00 Ondansetron HCl (Zofran) 4 mg PRN Q4HRS PRN IV NAUSEA/VOMITING; Start 06/04/20 at 12:00 Acetaminophen (Tylenol Supp) 650 mg PRN Q4HRS PRN [place] TEMP OVER 100.4F OR MILD PAIN; Start 06/04/20 at 12:00 Sodium Monofluorophosphate (Fleet Adult) 133 ml PRN DAILY PRN [place] CONSTIPATION; Start 06/04/20 at 12:00 Albuterol/ Ipratropium (Duoneb) 3 ml Q4H NEB ; Start 06/04/20 at 12:00; Stop 06/04/20 at 12:14; Status DC Enoxaparin Sodium (Lovenox 40mg Syringe) 40 mg Q24H SQ Last administered on 06/06at 11:04; Start 06/04/20 at 12:00 Albuterol/ Ipratropium (Duoneb) 3 ml PRN Q4HRS PRN NEB WHEEZING; Start 06/04/20 at 12:15 Potassium Chloride (Klor-Con) 40 meq 1X ONCE PO Last administered on 06/05/20at 13:12; Start 06/05/20 at 13:00; Stop 06/05/20 at 13:01; Status DC Potassium Chloride (Klor-Con) 20 meq DAILYWBKFT PO Last administered on 06/07/20at 07:42; Start 06/06/20 at 08:00 Active Scripts Active Reported No Known Medications Prior To Admisstion (Info) Each 1 Each 1X Vitals/I & O Vital Sign - Last 24 Hours 06/06/20 06/06/20 06/06/20 06/06/20 10:52 15:41 19:26 20:00 Temp 98.0 98.2 99.0 98.0 98.2 99.0 Pulse 64 68 75 Resp 20 20 21 B/P (MAP) 116/72 (87) 119/74 (89) 111/71 (84) Pulse Ox 96 98 96 O2 Delivery Room Air Room Air Room Air Room Air 06/06/20 06/07/20 06/07/20 06/07/20 23:48 03:24 07:18 07:59 Temp 98.9 98.3 98.2 98.9 98.3 98.2 Pulse 59 56 59 Resp 20 18 18 B/P (MAP) 122/74 (90) 112/58 (76) 97/59 (72) Pulse Ox 96 95 96 O2 Delivery Room Air Room Air Room Air Room Air Intake and Output 0 06/06/20 06/06/20 06/07/20 15:00 23:00 07:00 Intake Total 750 ml 470 ml 240 ml Balance 750 ml 470 ml 240 ml Justicifation of Admission Dx: Justifications for Admission: Justification of Admission Dx: Yes DOROTHY JOSE MD Jun 07, 2020 10:27
[2020-06-07] MEDS: ENOXAPARIN 40 MG/0.4 ML SYRINGE. SQ SCH (10:46)
[2020-06-07 11:10] VITALS: BP 117/80
[2020-06-07 11:55] LABS: ALBUMIN/GLOBULIN RATIO 0.7 (1.0-1.7); CALCIUM 8.2 mg/dL (8.5-10.1); GFR 99.2; POTASSIUM 3.4 mmol/L (3.5-5.1); TOTAL BILIRUBIN 0.7 mg/dL (0.2-1.0); TOTAL PROTEIN 7.1 g/dL (6.4-8.2)
--- NOTE | 2020-06-07 12:25 | PDOC ---
SURGICAL PROGRESS NOTE DATE: 06/07/20 TIME: 12:24 Subjective tolerating diet minimal pain loose stools Vital Signs Vital Signs Date Time Temp Pulse Resp B/P (MAP) Pulse Ox O2 Delivery O2 Flow Rate FiO2 06/07/20 11:10 98.8 55 18 117/80 (92) 95 Room Air 98.8 I&O Intake and Output 06/07/20 07:00 Intake Total 1460 ml Balance 1460 ml Intake Oral 1460 ml General: Alert, Oriented X3, Cooperative Abdomen: Soft, No tenderness Labs Laboratory Tests Test 06/06/20 04:25 06/07/20 11:25 White Blood Count 4.0 x10^3/uL (4.0-11.0) Red Blood Count 4.07 x10^6/uL (4.30-5.70) Hemoglobin 13.1 g/dL (13.0-17.5) Hematocrit 37.4 % (39.0-53.0) Mean Corpuscular Volume 92 fL (79-100) Mean Corpuscular Hemoglobin 32 pg (25-35) Mean Corpuscular Hemoglobin Concent 35 g/dL (31-37) Red Cell Distribution Width 12.9 % (11.5-14.5) Platelet Count 205 x10^3/uL (140-400) Neutrophils (%) (Auto) 55 % (31-73) Lymphocytes (%) (Auto) 33 % (24-48) Monocytes (%) (Auto) 11 % (0-9) Eosinophils (%) (Auto) 1 % (0-3) Basophils (%) (Auto) 0 % (0-3) Neutrophils # (Auto) 2.2 x10^3/uL (1.8-7.7) Lymphocytes # (Auto) 1.3 x10^3/uL (1.0-4.8) Monocytes # (Auto) 0.4 x10^3/uL (0.0-1.1) Eosinophils # (Auto) 0.0 x10^3/uL (0.0-0.7) Basophils # (Auto) 0.0 x10^3/uL (0.0-0.2) Sodium Level 139 mmol/L (136-145) 138 mmol/L (136-145) Potassium Level 3.3 mmol/L (3.5-5.1) 3.4 mmol/L (3.5-5.1) Chloride Level 105 mmol/L (98-107) 104 mmol/L (98-107) Carbon Dioxide Level 27 mmol/L (21-32) 27 mmol/L (21-32) Anion Gap 7 (6-14) 7 (6-14) Blood Urea Nitrogen 4 mg/dL (8-26) 4 mg/dL (8-26) Creatinine 0.8 mg/dL (0.7-1.3) 1.0 mg/dL (0.7-1.3) Estimated GFR (Cockcroft-Gault) 128.3 99.2 Glucose Level 78 mg/dL (70-99) 89 mg/dL (70-99) Calcium Level 8.0 mg/dL (8.5-10.1) 8.2 mg/dL (8.5-10.1) BUN/Creatinine Ratio 4 (6-20) Total Bilirubin 0.7 mg/dL (0.2-1.0) Aspartate Amino Transf (AST/SGOT) 19 U/L (15-37) Alanine Aminotransferase (ALT/SGPT) 32 U/L (16-63) Alkaline Phosphatase 66 U/L (46-116) Total Protein 7.1 g/dL (6.4-8.2) Albumin 3.0 g/dL (3.4-5.0) Albumin/Globulin Ratio 0.7 (1.0-1.7) Laboratory Tests Test 06/07/20 11:25 Sodium Level 138 mmol/L (136-145) Potassium Level 3.4 mmol/L (3.5-5.1) Chloride Level 104 mmol/L (98-107) Carbon Dioxide Level 27 mmol/L (21-32) Anion Gap 7 (6-14) Blood Urea Nitrogen 4 mg/dL (8-26) Creatinine 1.0 mg/dL (0.7-1.3) Estimated GFR (Cockcroft-Gault) 99.2 BUN/Creatinine Ratio 4 (6-20) Glucose Level 89 mg/dL (70-99) Calcium Level 8.2 mg/dL (8.5-10.1) Total Bilirubin 0.7 mg/dL (0.2-1.0) Aspartate Amino Transf (AST/SGOT) 19 U/L (15-37) Alanine Aminotransferase (ALT/SGPT) 32 U/L (16-63) Alkaline Phosphatase 66 U/L (46-116) Total Protein 7.1 g/dL (6.4-8.2) Albumin 3.0 g/dL (3.4-5.0) Albumin/Globulin Ratio 0.7 (1.0-1.7) Problem List Problems Medical Problems: (1) Small bowel obstruction Status: Acute Assessment/Plan improved ok for soft diet c diff pending dc per [facility] will sign off, please call with questions Justicifation of Admission Dx: Justifications for Admission: Justification of Admission Dx: Yes [employer] Jun 07, 2020 12:25
[2020-06-07] MEDS ORDERED: POTASSIUM CHLORIDE 20 MEQ TABLET.ER. PO ONE (14:30)
[2020-06-07 15:54] VITALS: BP 104/67
[2020-06-07 19:39] VITALS: BP 106/69
[2020-06-07] MEDS: FAMOTIDINE 20 MG/2 ML VIAL IVP SCH (20:22)
[2020-06-07 22:35] VITALS: BP 121/73
[2020-06-08 02:50] VITALS: BP 124/71
[2020-06-08 06:17] LABS: CALCIUM 8.3 mg/dL (8.5-10.1); CREATININE 0.9 mg/dL (0.7-1.3); POTASSIUM 3.4 mmol/L (3.5-5.1)
[2020-06-08 07:00] VITALS: BP 98/61
--- NOTE | 2020-06-08 07:30 | NUR ---
IP: Pt is without an active infection and may be removed from contact precautions.
[2020-06-08] MEDS: POTASSIUM CHLORIDE 20 MEQ TABLET.ER. PO SCH (09:37)
--- NOTE | 2020-06-08 09:50 | NUR ---
SW following. Discussed with RN, pt from home, advanced to GI soft diet. RN advised no SW needs, anticipate possible discharge today. SW will continue to follow.
--- NOTE | 2020-06-08 10:52 | PDOC ---
Date of Service: DATE: 06/08/20 TIME: 10:48 Subjective: Subjective: Feels fine, wants to go home. Eating w/o issue, no abd pain. Objective: Objective: Stool charted 06/06. Vital Signs: Vital Signs Date Time Temp Pulse Resp B/P (MAP) Pulse Ox O2 Delivery O2 Flow Rate FiO2 06/08/20 07:00 98.9 65 18 98/61 (73) 96 Room Air 98.9 Imaging: AAS 06/06 IMPRESSION: 1. Interval improvement in small bowel dilation. 2. Bilateral airspace disease, similar slightly improved from prior exam. PE: GEN: NAD LUNGS: CTAB HEART: RRR ABD: less distended, soft NEURO/PSYCH: A & O 3 A/P: SBO/ileus +cocaine +marijuana COVID negative -- Improved. Stool tests pending. Dc soon? Justicifation of Admission Dx: Justifications for Admission: Justification of Admission Dx: Yes EDER LESLIE Jun 08, 2020 10:52
[2020-06-08 11:00] VITALS: BP 110/61
[2020-06-08] MEDS: ENOXAPARIN 40 MG/0.4 ML SYRINGE. SQ SCH (12:00)
[2020-06-08] MEDS ORDERED: DOCU-109 PO (12:16)
--- NOTE | 2020-06-08 12:19 | NUR ---
lovenox held, patient discharging today
--- NOTE | 2020-06-08 12:20 | PDOC3 ---
Discharge Summary Visit Information Date of Admission: Jun 03, 2020 Date of Discharge: Jun 08, 2020 Final Diagnosis Small bowel is mildly dilated diffusely. Findings likely relate to either a developing more partial small bowel obstruction. 06/06 Interval improvement in small bowel dilation. on acute abd series polysubstance abuse, PCP, cocaine, THC Problems Medical Problems: (1) Small bowel obstruction Status: Acute Brief Hospital Course Allergies Allergies Coded Allergies Type Severity Reaction Last Updated Verified No Known Drug Allergies 10/15/14 No Vital Signs Vital Signs Date Time Temp Pulse Resp B/P (MAP) Pulse Ox O2 Delivery O2 Flow Rate FiO2 06/08/20 11:00 98.0 63 18 110/61 (77) 97 Room Air 98.0 Lab Results Laboratory Tests Test 06/07/20 11:25 06/08/20 04:30 Sodium Level 138 mmol/L (136-145) 140 mmol/L (136-145) Potassium Level 3.4 mmol/L (3.5-5.1) 3.4 mmol/L (3.5-5.1) Chloride Level 104 mmol/L (98-107) 104 mmol/L (98-107) Carbon Dioxide Level 27 mmol/L (21-32) 27 mmol/L (21-32) Anion Gap 7 (6-14) 9 (6-14) Blood Urea Nitrogen 4 mg/dL (8-26) 6 mg/dL (8-26) Creatinine 1.0 mg/dL (0.7-1.3) 0.9 mg/dL (0.7-1.3) Estimated GFR (Cockcroft-Gault) 99.2 112.0 BUN/Creatinine Ratio 4 (6-20) Glucose Level 89 mg/dL (70-99) 86 mg/dL (70-99) Calcium Level 8.2 mg/dL (8.5-10.1) 8.3 mg/dL (8.5-10.1) Total Bilirubin 0.7 mg/dL (0.2-1.0) Aspartate Amino Transf (AST/SGOT) 19 U/L (15-37) Alanine Aminotransferase (ALT/SGPT) 32 U/L (16-63) Alkaline Phosphatase 66 U/L (46-116) Total Protein 7.1 g/dL (6.4-8.2) Albumin 3.0 g/dL (3.4-5.0) Albumin/Globulin Ratio 0.7 (1.0-1.7) Laboratory Tests Test 06/08/20 04:30 Sodium Level 140 mmol/L (136-145) Potassium Level 3.4 mmol/L (3.5-5.1) Chloride Level 104 mmol/L (98-107) Carbon Dioxide Level 27 mmol/L (21-32) Anion Gap 9 (6-14) Blood Urea Nitrogen 6 mg/dL (8-26) Creatinine 0.9 mg/dL (0.7-1.3) Estimated GFR (Cockcroft-Gault) 112.0 Glucose Level 86 mg/dL (70-99) Calcium Level 8.3 mg/dL (8.5-10.1) Brief Hospital Course Mr. Lucia is a 44 old admti for acute abd pain, SBO, gen surg and GI consulted, conservative care, better after days, eatign and feeling well before DC Discharge Information Condition at Discharge: Improved Follow Up: Weeks Disposition/Orders: D/C to Home Scheduled Docusate Sodium (Colace) 100 Mg Capsule, 100 MG PO DAILY for constipation, #60 Prescribed by: ALIE MICHELLE on 06/08/20 1216 Info (No Known Medications Prior To Admisstion) Each, 1 EACH 1X for -, (Reported) Entered as Reported by: DIAZ LUNDY on 06/04/20531 Last Action: New Order on 06/04/20531 by DIAZ LUNDY Justicifation of Admission Dx: Justifications for Admission: Justification of Admission Dx: Yes ALIE MICHELLE MD Jun 08, 2020 12:20
--- NOTE | 2020-06-08 16:11 | NUR ---
Discharge Note: REINALDO OLMOS [address] [place] [address] Discharge instructions and discharge home medications reviewed with Patient and a copy given. All questions have been answered and understanding verbalized. The following instructions and handouts were given: diet, activity, medication list and follow up instructions provided to patient. Discontinued lines and drains: peripheral IV discontinued and catheter intact. Patient discharged to Home or Self Care with Spouse via Ambulated
[2020-06-08] MEDS ORDERED: FAMOTIDINE 20 MG TABLET. PO SCH (21:00)
== END 2020-06-08 16:12 | disposition home or self-care (01) | DRG 390 ==
LOC: ER 19:53 → 4 NORTH 21:30
PROVIDERS: ADMIT Internal Medicine; ATTEND Internal Medicine
DX: K56.600 Partial intestinal obstruction, unspecified as to cause (principal); K56.7 Ileus, unspecified; F12.10 Cannabis abuse, uncomplicated; F14.10 Cocaine abuse, uncomplicated; F17.210 Nicotine dependence, cigarettes, uncomplicated; K83.8 Other specified diseases of biliary tract; Z20.828 Contact with and (suspected) exposure to other viral communicable diseases; Z82.49 Family history of ischemic heart disease and other diseases of the circulatory system; Z82.5 Family history of asthma and other chronic lower respiratory diseases; Z90.49 Acquired absence of other specified parts of digestive tract; F32.9 Major depressive disorder, single episode, unspecified; F41.9 Anxiety disorder, unspecified; Z79.899 Other long term (current) drug therapy
CPT/HCPCS: 36415; 74022; 74177; 80048; 80053; 80307; 81001; 83690; 85025; 85610; 87040; 87426; 87493; 87505; 96361; 96374; 99285; J1650; J2270; J3010; J3490; J7030; Q9967; G0378; U0003-CS